=== PATIENT | male | born 1945 | race Caucasian/White ===

== ENCOUNTER 2019-03-18 18:48 | Inpatient (IN) | payer SELFPAY ==
[~2019-03-18] VITALS: Ht 180.3 cm; Wt 66.0 kg
[2019-03-18 19:53] LABS: BASOPHILS 0.3 % (0-2); EOSINOPHILS 0.3 % (0-7); HEMATOCRIT 41.3 % (42.0-54.0); HEMOGLOBIN 14.3 g/dL (13.5-17.5); IMMATURE GRANULOCYTES 0.4 % (0-5); LYMPHOCYTES 20.2 % (15-50); MCHC 34.6 g/dL (31.0-37.0); MCV 95.4 fL (80.0-100.0); MEAN PLATELET VOLUME 9.2 fL (7.4-10.4); MONOCYTES 9.5 % (2-11); NEUTROPHILS 69.3 % (40-80); PLATELET COUNT 215 10x3/uL (130-400); RBC 4.33 10x6/uL (4.20-6.10); RDW 12.7 % (11.5-14.5); WBC 9.1 10x3/uL (4.8-10.8)
[2019-03-18 20:03] LABS: INR 1.17 (0.85-1.17); PROTIME 14.4 SECONDS (11.6-15.0)
[2019-03-18 20:08] LABS: ALBUMIN 4.3 g/dL (3.4-5.0); ANION GAP 15.2 mmol/L (8-16); BILIRUBIN - TOTAL 2.16 mg/dL (0.2-1.3); CALCIUM 9.4 mg/dL (8.5-10.1); CARBON DIOXIDE 23.7 mmol/L (21.0-32.0); CREATININE - SERUM 1.2 mg/dL (0.6-1.3); POTASSIUM - SERUM 3.9 mmol/L (3.5-5.1); PROTEIN - SERUM 8.1 g/dL (6.4-8.2)
[2019-03-18 20:34] LABS: CHOL - HDL RATIO 2.2 ratio (2.3-4.9); LDL-HDL RATIO 1.1 ratio (1.5-3.5); MAGNESIUM - SERUM 2.1 mg/dL (1.8-2.4); THYROID STIMULATING HORMONE 1.02 uIU/mL (0.36-3.74)
[2019-03-18 20:34] LABS: APPEARANCE CLEAR (CLEAR); BILIRUBIN NEGATIVE (NEGATIVE); COLOR YELLOW (YELLOW); GLUCOSE NEGATIVE (NEGATIVE); KETONE MODERATE mg/dL (NEGATIVE); NITRITE NEGATIVE (NEGATIVE); PROTEIN NEGATIVE (NEGATIVE); UROBILINOGEN NORMAL (NORMAL)
[2019-03-18 20:41] LABS: UDS - AMPHET NEGATIVE QUAL (NEGATIVE); UDS - BARB NEGATIVE QUAL (NEGATIVE); UDS - BENZO NEGATIVE QUAL (NEGATIVE); UDS - COCAINE NEGATIVE QUAL (NEGATIVE); UDS - OPIATE NEGATIVE QUAL (NEGATIVE); UDS - PCP NEGATIVE QUAL (NEGATIVE); UDS - THC POSITIVE QUAL (NEGATIVE)
--- NOTE | 2019-03-18 21:55 | NUR ---
PT WAS WILLING TO SEEK TREATMENT THROUGH [facility].
--- NOTE | 2019-03-18 22:00 | NUR ---
[facility] AT BEDSIDE AND NOW PT IS NOT WILLING TO STAY UNDER THE CONDITIONS THAT MEDICARE COMPLIANCE AUDITOR MENTIONED.
[2019-03-18 22:30] VITALS: BP 139/83
--- NOTE | 2019-03-18 22:30 | NUR ---
WHEN DISCHARGING PT, PT DECIDED TX WOULD BENEFIT SO DECIDED TO STAY AND SEEK TX.
--- NOTE | 2019-03-18 22:48 | NUR ---
DR GOMEZ NOTIFIED AND REVIEWED PT's BEHAVIOR AND ASSESSMENT RESULTS. PT IS A LOW RISK PER DR GOMEZ, DR LEE STATES T GIVE RESOURCES TO PT AT TIME OF DISCHARGE. NO FURTHER ORDERS AT THIS TIME, RESOURCES REVIEWED WITH PT AND HE VERBALIZED UNDERSTANDING. DR GOMEZ ACCEPTE HIM TO HALFWAY FOR HIS HALLUCINATIONS, PT INITALY DECLINED BUT HIS FRIEND TALKED HIM INTO GETTING HELP.
--- NOTE | 2019-03-18 23:20 | NUR ---
REPORT CALLED TO JAZMINE IN [facility] UNIT. ROOM ASSIGNMENT 1127. EMERGENCY CONTACT INFORMATION CRISTI CHUNG [phone].
[2019-03-19 00:27] VITALS: BP 156/75; Ht 180.3 cm; Wt 66.0 kg
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
[2019-03-19 07:10] LABS: CHOL - HDL RATIO 2.3 ratio (2.3-4.9); THYROID STIMULATING HORMONE 1.19 uIU/mL (0.36-3.74)
--- NOTE | 2019-03-19 07:46 | NUR ---
B) The patient is pleasant, he is pacing the floor. He is oriented x3. He has not shown any signs of hallucinations at this time. He has requested a bandaid as he says he has a chafing area in between his toes. I) Provide prescribed meds. R) The patient is cooperative at this time. P) Continue POC.
[2019-03-19 08:30] VITALS: BP 132/70
--- NOTE | 2019-03-19 14:24 | NUR ---
DR. GOMEZ SPOKE TO THE PATIENT AND SHE ATTEMPTED TO ENCOURAGE THE PATIENT TO STAY OVER THE WEEKEND, BUT THE PATIENT IS ADAMANT TO LEAVE, THEREFORE DR. GOMEZ SAYS SHE IS DISCHARGING THE PATIENT AGAINST MEDICAL ADVISE. WILL BEGIN TO WORK ON THE DISCHARGE NOW.
--- NOTE | 2019-03-19 14:56 | NUR ---
THE PATIENT SIGNED ALL OF HIS AMA PAPERWORK AND I CALLED THE PATIENT'S FRIEND CRISTI TO COME PICK THE PATIENT UP. HE SAYS HE WILL BE HERE SHORTLY.
--- NOTE | 2019-03-19 15:19 | NUR ---
PATIENT FRIEND CAME TO INJECTION MACHINE OPERATOR PATIENT. FRIEND ATTEMPTED TO TELL HIM HE NEEDS HELP. PT CONFUSED THINKING HE HAS BEEN HERE 3 DAYS AND DOES NOT HAVE THE MONEY TO BUY GROCERY. FRIEND ATTEMPTED TO EXPLAIN TO PT HE HAD MONEY AND HE NEEDED HELP. PT DENIED HE HAD ANY PROBLEMS. PT LEFT AGAINST MEDICAL ADVICE.
--- NOTE | 2019-03-19 15:25 | NUR ---
DUE TO ALL THE COMMUNICATION FROM PATIENT FRIEND APS CALLED FOR A WELLNESS CHECK. WILL FAX INFORMATION TO [facility].
[2019-03-20 08:10] LABS: RAPID PLASMA REAGIN Non Reactive (Non Reactive)
--- NOTE | 2019-03-22 12:28 | PSY ---
PATIENT NAME:ROLANDA CALLOWAY MEDICAL RECORD: [id number] : 41 LOCATION:[facility] ADMISSION DATE: 03/18/19 ACCOUNT: [id number] PSYCHIATRIC EVALUATION DATE OF EVALUATION: 03/19/19 HISTORY OF PRESENT ILLNESS: Mr. Calloway is a 73-year-old male who was brought to the Emergency Room last night by a neighbor who is also a deputy sheriff civil division. The neighbor stated that the patient has been living in his apartment acting confused and agitated and the patient had reported to him visual hallucinations. The patient goes into some detail stating they look like ghost of people, like female Ninja warriors in pined[place], but when he averted eyes and then went to focus on them again, they were gone. He came to the Emergency Room. Apparently, there he initially decided to come, then decide to leave, then decided to stay and after a fairly extensive discussion of his background and history, he states that he no longer wishes to stay. He denies suicidal or homicidal ideation, auditory or visual hallucinations. He states his last visual hallucination was several days ago, although ER records state that he was reporting them the day of ER visit. He denies delusions. I tried to discuss with him the rationale and psychiatric treatment mainly seeing if they reappear, what factors make them reappear. If they do not, they might have been drug induced, but the only way to tell that is through further hospitalization. The patient again refuses and demands to be discharged. PAST PSYCHIATRIC HISTORY: He denies any prior psychiatric history. No inpatient admissions, no suicide attempts. PAST MEDICAL HISTORY: ER reports nothing. The patient states he initially stated that he had nothing and then reported he had been taking his finasteride for his prostate regularly, but then again would say he had no real medical problems other than the [facility] simply wanted him to take something. ALLERGIES: No known drug allergies. SOCIAL HISTORY: He was born in [place], grew up in [place], moved to the at 17. He is a resident of [place]. 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 Denies any legal problems. States his neighbor is a deputy sheriff civil division. DRUG AND ALCOHOL: He states he has been using concentrated forms of marijuana recently. He denies any alcohol use or any other illicit substance abuse. His urine drug screen was positive for THC only. FAMILY HISTORY: He denied. MENTAL STATUS EXAM: He is a 73-year-old thin male, dressed and groomed casually, slightly disheveled. His thought process is rational, frequently irrelevant. He is overly inclusive of detail of most questions and circumstantial. He denies suicidal or homicidal ideation. No auditory or visual hallucinations currently. No delusions. Cognitive exam: He knew it was Friday, late February 2019. He knew he was in the [place]. He knew the president was Marcelo Shelton. He had some insight into why he came into the hospital. ASSESSMENT: Psychosis, not otherwise specified, rule out psychosis secondary to THC use versus a rule out of visual hallucinations associated with burgeoning dementia, particularly parkinsonian dementia. PLAN: At this point, the patient denies all entrance symptomatology. I cannot diagnostically evaluate his visual hallucinations in this brief visit, adequately considering especially the confusion that was noted as well. However, he is not an immediate harm to himself. I have discussed with the patient the options and he wants to discharge against medical advice. We will do so with recommendation that he not smoke anymore marijuana and he follow up with his general practitioner as soon as possible. Case discussed with nursing, chart reviewed, and the patient interviewed. TRANSINT:[id number] Voice Confirmation ID: [id number] DOCUMENT ID: [id number] FAISAL GOMEZ MD at 1228 CC: [id number] DICTATION DATE: 03/19/19 1248 MAINTENANCE AND ENGINEERING MANAGER: 03/19/19 1314 DIS IN 03/19/19 [facility] [address] [place] [address]
== END 2019-03-19 15:18 | disposition left against medical advice (07) | DRG 125 ==
LOC: D.ER 18:48 → D.PSYCH 23:01
PROVIDERS: Family Medicine; ADMIT Psychiatry & Neurology Psychiatry; ATTEND Psychiatry & Neurology Psychiatry
DX: R44.1 Visual hallucinations (principal); R41.0 Disorientation, unspecified; F12.90 Cannabis use, unspecified, uncomplicated; F17.210 Nicotine dependence, cigarettes, uncomplicated

== ENCOUNTER 2019-03-22 08:08 | Emergency (ER) | payer OTHER ==
[~2019-03-22] VITALS: Ht 180.3 cm; Wt 74.1 kg
[2019-03-22 08:13] VITALS: BP 164/85; Ht 180.3 cm; Wt 74.1 kg
[2019-03-22 08:45] LABS: UDS - AMPHET NEGATIVE QUAL (NEGATIVE); UDS - BARB NEGATIVE QUAL (NEGATIVE); UDS - BENZO NEGATIVE QUAL (NEGATIVE); UDS - COCAINE NEGATIVE QUAL (NEGATIVE); UDS - OPIATE NEGATIVE QUAL (NEGATIVE); UDS - PCP NEGATIVE QUAL (NEGATIVE); UDS - THC POSITIVE QUAL (NEGATIVE)
[2019-03-22 08:57] LABS: BASOPHILS 0.4 % (0-2); EOSINOPHILS 0.4 % (0-7); HEMATOCRIT 41.9 % (42.0-54.0); HEMOGLOBIN 14.7 g/dL (13.5-17.5); IMMATURE GRANULOCYTES 0.3 % (0-5); LYMPHOCYTES 20.1 % (15-50); MCH 33.8 pg (26.0-34.0); MCHC 35.1 g/dL (31.0-37.0); MCV 96.3 fL (80.0-100.0); MEAN PLATELET VOLUME 9.5 fL (7.4-10.4); MONOCYTES 9.5 % (2-11); NEUTROPHILS 69.3 % (40-80); PLATELET COUNT 211 10x3/uL (130-400); RBC 4.35 10x6/uL (4.20-6.10); RDW 12.8 % (11.5-14.5); WBC 7.4 10x3/uL (4.8-10.8)
[2019-03-22 09:03] LABS: ALKALINE PHOSPHATASE 81 U/L (46-116); ALT (SGPT) 23 U/L (10-68); BILIRUBIN - TOTAL 2.16 mg/dL (0.2-1.3); CALC OSMOLALITY 288 mosm/kg (275-300); CALCIUM 9.2 mg/dL (8.5-10.1); CARBON DIOXIDE 27.5 mmol/L (21.0-32.0); CHLORIDE - SERUM 106 mmol/L (98-107); CREATININE - SERUM 1.2 mg/dL (0.6-1.3); GLUCOSE 104 mg/dL (74-106); POTASSIUM - SERUM 3.4 mmol/L (3.5-5.1); SODIUM 143 mmol/L (136-145); UREA NITROGEN 25 mg/dL (7-18); eGFR NON AFRICAN AMERICAN 63 mL/min (90-120)
[2019-03-22 09:15] LABS: CKMB 3.5 U/L (0.0-3.6); CREATINE KINASE 396 UL (21-232); MAGNESIUM - SERUM 2.3 mg/dL (1.8-2.4); THYROID STIMULATING HORMONE 1.57 uIU/mL (0.36-3.74); TROPONIN-I < 0.017 ng/mL (0.000-0.060)
[2019-03-22 09:17] LABS: APPEARANCE CLEAR (CLEAR); BACTERIA FEW /hpf (NEGATIVE); BILIRUBIN NEGATIVE (NEGATIVE); COLOR YELLOW (YELLOW); EPITHELIAL CELLS 0-5 /hpf (0-5); GLUCOSE NEGATIVE (NEGATIVE); KETONE SMALL mg/dL (NEGATIVE); MUCUS >1+ /lpf (NONE SEEN); NITRITE NEGATIVE (NEGATIVE); PROTEIN TRACE mg/dL (NEGATIVE); RED CELLS - URINE RARE /hpf (0-5); SPECIFIC GRAVITY 1.025 (1.005-1.020); SPERMATOZOA PRESENT /hpf (NONE SEEN); WHITE CELLS - URINE 0-5 /hpf (NEGATIVE)
== END 2019-03-22 15:20 | disposition home or self-care (01) ==
LOC: D.ER 08:08
PROVIDERS: Family Medicine
DX: R42 Dizziness and giddiness (principal); F03.90 Unspecified dementia, unspecified severity, without behavioral disturbance, psychotic disturbance, mood disturbance, and anxiety; E86.9 Volume depletion, unspecified

== ENCOUNTER 2019-04-15 09:01 | Inpatient (IN) | payer OTHER ==
[2019-04-15 10:43] LABS: BASOPHILS 0.3 % (0-2); HEMATOCRIT 43.9 % (42.0-54.0); HEMOGLOBIN 14.8 g/dL (13.5-17.5); IMMATURE GRANULOCYTES 0.3 % (0-5); LYMPHOCYTES 33.5 % (15-50); MCH 33.2 pg (26.0-34.0); MCHC 33.7 g/dL (31.0-37.0); MCV 98.4 fL (80.0-100.0); MONOCYTES 9.4 % (2-11); NEUTROPHILS 55.5 % (40-80); PLATELET COUNT 193 10x3/uL (130-400); RBC 4.46 10x6/uL (4.20-6.10); RDW 13.2 % (11.5-14.5); WBC 5.7 10x3/uL (4.8-10.8)
[2019-04-15 10:51] LABS: UDS - AMPHET NEGATIVE QUAL (NEGATIVE); UDS - BARB NEGATIVE QUAL (NEGATIVE); UDS - BENZO NEGATIVE QUAL (NEGATIVE); UDS - COCAINE NEGATIVE QUAL (NEGATIVE); UDS - OPIATE NEGATIVE QUAL (NEGATIVE); UDS - PCP NEGATIVE QUAL (NEGATIVE); UDS - THC POSITIVE QUAL (NEGATIVE)
[2019-04-15 10:54] LABS: APTT 29.4 SECONDS (22.8-39.4); INR 1.78 (0.85-1.17); PROTIME 20.1 SECONDS (11.6-15.0)
[2019-04-15 10:58] LABS: ANION GAP 9.4 mmol/L (8-16); CALCIUM 8.9 mg/dL (8.5-10.1); CARBON DIOXIDE 31.5 mmol/L (21.0-32.0); CREATININE - SERUM 1.1 mg/dL (0.6-1.3); POTASSIUM - SERUM 3.9 mmol/L (3.5-5.1)
[2019-04-15 11:20] LABS: APPEARANCE HAZY (CLEAR); BILIRUBIN NEGATIVE (NEGATIVE); COLOR YELLOW (YELLOW); GLUCOSE NEGATIVE (NEGATIVE); KETONE NEGATIVE (NEGATIVE); NITRITE NEGATIVE (NEGATIVE); PROTEIN NEGATIVE (NEGATIVE); SPECIFIC GRAVITY 1.015 (1.005-1.020)
[2019-04-15 11:21] LABS: BACTERIA FEW /hpf (NEGATIVE); EPITHELIAL CELLS OCC /hpf (0-5); MUCUS <1+ /lpf (NONE SEEN); RED CELLS - URINE NONE SEEN /hpf (0-5); WHITE CELLS - URINE RARE /hpf (NEGATIVE)
[2019-04-15 11:27] LABS: BILIRUBIN - TOTAL 1.4 mg/dL (0.2-1.3); LDL-HDL RATIO 0.8 ratio (1.5-3.5); MAGNESIUM - SERUM 2.4 mg/dL (1.8-2.4); PROTEIN - SERUM 7.9 g/dL (6.4-8.2); THYROID STIMULATING HORMONE 1.12 uIU/mL (0.36-3.74)
--- NOTE | 2019-04-15 12:24 | NUR ---
MEAL TRAY TO PT. PT EATING.
--- NOTE | 2019-04-15 13:15 | NUR ---
PT ACCEPTED TO CUSTODIAL AT THIS TIME.
--- NOTE | 2019-04-15 13:21 | NUR ---
PT STATES HE NEEDS HELP DECIDING WHETHER TO USE MEDICARE OR HIS VA BENEFITS. REQUESTS HELP DECIDING. REGISTRATION STAFF CONTACTED ET SENT TO ROOM.
--- NOTE | 2019-04-15 14:00 | NUR ---
PATIENT ARRIVED TO UNIT IN WHEELCHAIR FROM ED. PT AMBULATES, ABLE TO MAKE NEEDS KNOW. PT IS PLESANT AND VOLUNTARY ADMIT. PT CODE STATUS IS DNR. PT IS HERE FOR HALLUNICATIONS. PT SHOWERED WHEN CAME TO THE UNIT. NKDA. V/S: B/P: 120/52, P: 89, R:18, T:98.5, 02 SAT 99%. WEIGHT: 157.2 LBS PER WHEELCHAIR SCALE.
--- NOTE | 2019-04-15 14:15 | NUR ---
Obtained urine for UA and culture. Will send to lab.
[2019-04-15 14:22] VITALS: BP 120/52; BMI 21.9
[2019-04-15 14:37] LABS: APPEARANCE CLEAR (CLEAR); BILIRUBIN NEGATIVE (NEGATIVE); COLOR YELLOW (YELLOW); GLUCOSE NEGATIVE (NEGATIVE); KETONE NEGATIVE (NEGATIVE); NITRITE NEGATIVE (NEGATIVE); PROTEIN TRACE mg/dL (NEGATIVE)
[2019-04-15 20:20] VITALS: BP 112/63
--- NOTE | 2019-04-15 22:32 | NUR ---
REC'D IN DAYROOM. ASKING FOR SOMETHING TO DRINK. WATER GIVEN TO PATIENT. PATIENT IS ANGRY AND UNCOOPERATIVE WHEN TRYING TO TALK WITH HIM. HE YELLS AT YOU TO GET OUT. DID NOT WANT THE HALLOWEEN DECORATION ON HIS DOOR. WOULD NOT ANSWER NURSE'S QUESTIONS RELATING I'M TRYING TO SLEEP NOW GET OUT OF HERE. PT GOT UP AND GRABBED HIS JACKET REATING HE WAS GOING SOMEWHERE WHERE HE COULD REST. INFORMED PATIENT HE IS IN HIS ROOM. HE THEN RELATED GET OF OUT AND LEAVE ME ALONE. OBSERVE FOR HALLUNCINATIONS AND REDIRECT USING REALITY BASED INFORMATION. REDIRECT FOR INAPPROPRIATE BEHAVIORS TOWARD PEERS STAFF. NO HALLUCINATIONS NOTED OR REPORTED. POOR REORIENTATION. YELLS AND IS NOT RECEPTIVE TO FEEDBACK. CONTINUE POC AND PROVIDE NYASIA ENVIRONMENT.
--- NOTE | 2019-04-16 02:41 | NUR ---
PT PRESENTED TO NURSE'S STATION DEMANDING HIS BELONGINGS. EXPLAINED TO PT HIS PERSONAL ITEMS WERE LOCKED IN THE SAFE. HE PROCEEDED TO TELL NURSE TO GET THEM. NURSE WENT TO CHECK ON A BED ALARM AND TOLD PATIENT WE WOULD CHECK THE CHART WHEN I GOT BACK. PATIENT THREW A BOX OF GLOVES OVER THE NURSE'S STATION DESK. PATIENT CAME TO THE ROOM WHERE THE NURSE WAS AND ASKED WHERE THE HOME BASED ASSISTANT WAS THAT BROUGHT HIM HERE. EXPLAINED THE DIP STAND LOADER WAS NOT CURRENTLY WORKING BECAUSE HE CAME IN DURING THE DAY TIME. PATIENT THEN DOUBLED HIS FIST AND PULLED BACK IF WAS GOING TO HIT THE NURSE. PATIENT THAT THE NURSE WAS HELPING STARTED APOLOGIZNG. REASSURED THAT PATIENT THAT HE HAD NOT DONE ANYTHING WRONG. THE OTHER PATIENT RETURNED BACK TO THE ROOM WHERE THE NURSE WAS AND GRABBED THE BLANKET OUT OF HER HAND RELATING HE WANTED HIS STUFF AND ALL THE NURSE WAS DOING WAS MAKING A BED. PATIENT GOT BACK IN THE BED AND WHEN THE NURSE GOT BACK TO THE DESK THE ANGRY PATIENT WAS AT THE NURSES STATION AND WOULD NOT LET HER SHUT THE DOOR. CALLED ER FOR SECURITY TO COME TO THE UNIT AND WHEN HE ARRRIVED PATIENT TOLD HIM HE WANTED HIS BELONGINGS AND PROCEEDED TO CALL THE NURSE A BITCH AND RELATED WE WERE STEALING FROM HIM. PATIENT FINALLY RETURNED TO HIS ROOM WITHOUT INCIDENCE.
--- NOTE | 2019-04-16 07:17 | NUR ---
B) The patient is getting paranoid. He is accusing staff of keeping his passports and he is listening to all of the conversations about others and staff have politely asked him to sit away from the desk. He is disgruntled and irritable this am. He does not remember being here last month. I) Encourage the patient to participate in groups and learn coping skills. R) The patient is at the nurses station and he is making comments to some of the nurses. Will allow the patient to self calm. P) Continue POC.
[2019-04-16 08:23] LABS: CHOL - HDL RATIO 2.1 ratio (2.3-4.9)
[2019-04-16 09:39] VITALS: BP 102/52; BP 95/50
[2019-04-16 10:00] VITALS: Wt 72.4 kg
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
[2019-04-16 20:00] VITALS: BP 125/61
--- NOTE | 2019-04-17 00:49 | NUR ---
B.) PT IS ALERT AND ORIENTED PERSON, PLACE AND TIME. HE IS DEMANDING, INTRUSIVE WITH OTHERS, AND CONFRONTATIONAL WITH STAFF. HE IS ABLE TO MAKE HIS NEEDS KNOWN. HE CAN AMBULATE WITHOUT ASSISTANCE. I.) REDIRECT OFTEN. PROVIDED PM MEDICATION. R.) DIFFICULT TO REDIRECT. REMAINS INTRUSIVE WITH OTHERS. COMPLIANT WITH MEDICATION. P.) CONTINUE PLAN OF CARE
--- NOTE | 2019-04-17 08:02 | PN ---
PATIENT:ROLANDA CALLOWAY MEDICAL RECORD: [id number] LOCATION:[facility] ADMISSION DATE: 04/15/19 PROGRESS NOTE DATE OF SERVICE: 04/16/2019 SUBJECTIVE: The patient's case was discussed with staff. He has no new complaint. OBJECTIVE: The patient is clearly impaired cognitively. He denies that he would seek to harm himself or others. ASSESSMENT: Dementia. PLAN: I am going to start the patient on Aricept at a dose of 5 mg at bedtime. He will be monitored for clinical changes associated with its use. His long-term prognosis is guarded. TRANSINT:[id number] Voice Confirmation ID: [id number] DOCUMENT ID: [id number] KAILA CONLEY MD at 0802 CC: [id number] DICTATION DATE: 04/16/19 152 TUBE CLEANING OPERATOR: 04/16/19 2131 ADM IN [address] [place] [id number]
[2019-04-17 09:16] VITALS: BP 119/60
--- NOTE | 2019-04-17 13:00 | NUR ---
The patient has been taking food from other patients trays if they do not eat the item. Staff also witnessed him taking food off of the food cart after the patient's had eaten off of teir trays. Did have to explain that he did not need to do that, we will order him double portions. He agreed. He is confused and will need redirection and a reminder.
--- NOTE | 2019-04-17 15:25 | NUR ---
The patient is intrusive and he has no spatial boundaries and he is unable to comprehend when a situation is going badly as he will interject his thoughts at the most inappropraite times. A patient had been having some issues breathing and he wanted to get up in the nurses face and ask questions about having a blanket. Even when staff explained to him that it will be just a moment. The patient continues to step out of his dorothy and into others. He went so far as to tell the staff that they should leave everyone's trays on the table in case they wanted to continue eating.
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
[2019-04-17 20:00] VITALS: BP 142/59
--- NOTE | 2019-04-17 20:02 | NUR ---
RECEIVED IN DAYROOM. SOCIALZING WITH STAFF AND PEERS. CALM AND COOPERATIVE WITH CARE AND ASSESSMENT. NO SIGNS OF HALLUCINATIONS. REDIRECT AND REORIENT NEEDED. CONTINUES TO SOCIALIZE WHILE WAITING ON PM MEDICATIONS. CONTINUE PLAN OF CARE.
[2019-04-18 08:00] VITALS: BP 115/73
--- NOTE | 2019-04-18 17:06 | NUR ---
PATIENT ALERT, RESTLESS, CONFUSED, CONT TO INQUIRE ABOUT HIS PERSONAL BELONGINGS. ASSURED PT THAT HIS BELONGINGS WERE IN THE HOSPITAL SAFE..PAT THEN ASKED IF THIS NURSE COULD TAKE A PICTURE OF THE BELONGINGS TO PROVE THAT THEY WERE OK..INFORMED PATIENT THAT WAS NOT POSSIBLE. THERE WERE NO MEDS TO ADMIN AT MORNING MED PASS. MEDS DUE AT 21:00. CONT PLAN OF CARE DIRECTED.
[2019-04-18 20:10] VITALS: BP 158/71
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
[2019-04-19 08:28] VITALS: BP 125/61
--- NOTE | 2019-04-19 13:07 | NUR ---
PT IS AWAKE AND ALERT TO PERSON, PLACE, AND TIME. PT IS CONFUSED ABOUT HIS SITUATION AT THIS TIME. CALM AND COOPERATIVE WITH ASSESSMENT. MED COMPLIANT. FALL PRECAUTIONS IN PLACE. WILL CPOC.
--- NOTE | 2019-04-19 14:41 | NUR ---
Nutrition Follow-up: Diet: Regular, double portions PO intake: 100% Last BM 04/16/19. Wt: 160# (04/18/19); Admit wt: 157# (04/15/19)-both wheelchair wts Significant meds: linzess. Labs and nursing skin assessment reviewed. Continue current nutrition regimen. RD Following.
--- NOTE | 2019-04-19 15:49 | PN ---
PATIENT:ROLANDA CALLOWAY MEDICAL RECORD: [id number] LOCATION:[facility] ADMISSION DATE: 04/15/19 PROGRESS NOTE DATE OF SERVICE: 04/17/2019 SUBJECTIVE: The patient's case was discussed with staff. He has no new complaint. OBJECTIVE: The patient is in good behavioral control with poor insight about his condition. He tolerates his medicines well. ASSESSMENT: Dementia. PLAN: The patient was actively hallucinating and showed sundowning behaviors last night. He has no recollection of this. I have started him on Aricept and it may be necessary to start him on an antipsychotic, but I am going to wait on that. I have discussed the situation with the medical social consultant and an apartment for him is going to be difficult because of his low income and I do not think he could adequately function in an apartment at this point. TRANSINT:[id number] Voice Confirmation ID: [id number] DOCUMENT ID: [id number] KAILA CONLEY MD at 1549 CC: [id number] DICTATION DATE: 04/17/19 0840 FINANCIAL PLANNING ASSISTANT: 04/17/[address] [facility] [address] [place] [address]
[2019-04-19 20:05] VITALS: BP 95/77
--- NOTE | 2019-04-19 21:22 | NUR ---
RECEIEVED IN DAYROOM. WALKING ABOUT SOCIALIZING WITH STAFF AND PEERS. CALM AND COOPERATIVE WITH CARE AND ASSESSMENT. CONFUSED. ENCOURAGE TO EXPRESS NEEDS. REDIRECT AND REORIENT NEEDED. IN BED ROOM SITTING ON BED AT THIS TIME. CONTINUE PLAN OF CARE.
--- NOTE | 2019-04-20 08:00 | NUR ---
PT IS CONFUSED AT TIMES. PT CAN BE VERY DEMANDING WITH STAFF. PT IS VERY PARANOID AND DELUSIONAL TODAY. PT CAN BE VERY DIFFICULT TO REDIRECT AT TIMES. MED COMPLIANT. CALM AND COOPERATIVE WITH ASSESSMENT. REDIRECT AND REORIENT NEEDED. WILL CPOC.
[2019-04-20 08:18] VITALS: BP 114/53
--- NOTE | 2019-04-20 15:28 | PN ---
PATIENT:ROLANDA CALLOWAY MEDICAL RECORD: [id number] LOCATION:[facility] ADMISSION DATE: 04/15/19 PROGRESS NOTE DATE OF SERVICE: 04/19/2019 SUBJECTIVE: The patient's case was discussed with staff. He has no new complaint. OBJECTIVE: The patient is in good behavioral control with limited insight about his condition. He denies that he would seek to harm himself or others. ASSESSMENT: Dementia. PLAN: Current medicines have been reviewed and will be maintained. Long-term prognosis is guarded. TRANSINT:[id number] Voice Confirmation ID: [id number] DOCUMENT ID: [id number] KAILA CONLEY MD at 1528 CC: [id number] DICTATION DATE: 04/19/19 1642 FLAP PRESSER: 04/19/19 2155 ADM IN [place] [id number] [place] [address]
--- NOTE | 2019-04-20 20:54 | NUR ---
RECEIVED IN DAYROOM. WALKING ABOUT SOCIALIZING WITH STAFF AND PEERS. INTRUSIVE AT TIMES. CALM AND COOPERATIVE WITH CARE AND ASSESSMENT. ENCOURAGE TO EXPRESS NEEDS. NO SIGNS OF HALLUCINATIONS. SITTING QUIETLY WITH STAFF AT THIS TIME. CONTINUE PLAN OF CARE
[2019-04-20 21:05] VITALS: BP 118/58
[2019-04-21 08:00] VITALS: BP 112/62
--- NOTE | 2019-04-21 14:20 | PN ---
PATIENT:ROLANDA CALLOWAY MEDICAL RECORD: [id number] LOCATION:[facility] ADMISSION DATE: 04/15/19 PROGRESS NOTE DATE OF SERVICE: 04/20/2019 SUBJECTIVE: The patient's case was discussed with staff. He has no new complaint. OBJECTIVE: The patient is delusional. He is making some very bizarre statements about things on the unit that deal with staff mistreating patients. Obviously any complaint or concern about that is taken seriously and investigated, but there is not much to investigate because all he says is that it involves a large nurse. He does not know which one and an elderly female patient. There are only 4 or 5 sitting in the day room and he cannot say which one and he says that the patients being locked in a steel plated at room and strapped to a table. He says this has been done in the past several days in a row and is being done during the day and not at night. Probing him about any particulars is not effective. He is highly distressed about this and says that he fears for his own life telling me this information. He is clearly paranoid and delusional and I think that he is going to require an antipsychotic medication. I am going to start him on Trilafon. I believe the psychotic symptoms are related to his underlying dementia. TRANSINT:[id number] Voice Confirmation ID: [id number] DOCUMENT ID: [id number] KAILA CONLEY MD at 1420 CC: [id number] DICTATION DATE: 04/20/19 1558 COMMUNITY HEALTH COORDINATOR: 04/20/19 2221 ADM IN [place] [id number] [place] [address]
--- NOTE | 2019-04-21 17:00 | NUR ---
PATIENT WAS ESCALATING IN DAYROOM AND GETTING AGITATED. TRIED TO TALK TO PATIENT, HE REFUSED THE MEDICATIONS OFFERED TO HIM. HE DID CALM DOWN.
--- NOTE | 2019-04-21 17:00 | NUR ---
AWAKE AND ALERT WITH CONFUSION NOTED. HE IS VERY DEMANDING AT TIMES. ALSO DIFFICULT TO REDIRECT. ADMINISTER PRESCRIBED MEDICATIONS. COMPLIANT WITH TAKING MEDS. WILL CONTINUE TO MONITOR.
[2019-04-21 20:00] VITALS: BP 143/68
--- NOTE | 2019-04-21 22:32 | NUR ---
B.) PT IS ALERT AND ORIENTED TO SELF AND SITUATION. HE IS ABLE TO AMBULATE WITHOUT ASSISTANCE. HE IS INTRUSIVE WITH STAFF. HE IS ABLE TO MAKE HIS NEEDS KNOWN. HE CONTINUES TO ASK FOR A PEN AND PAPER TO WRITE A LETTER TO HIS DAUGHTER BUT IS UNSURE OF WHERE TO SEND IT. I.) REDIRECT NEEDED. PROVIDED PM MEDICATIONS. R.) EASY TO REDIRECT. COMPLIANT WITH ALL MEDICATIONS. P.) CONTINUE PLAN OF CARE
[2019-04-22 08:36] VITALS: BP 161/80
--- NOTE | 2019-04-22 10:04 | NUR ---
RECEIVED PATIENT IN DINING ROOM FOR B'FAST, ALERT, RESTLESS, PACING ABOUT UNIT, INSISTS ON CONTROLLING THE TV, BUT OFTEN DOES NOT WATCH IT BUT PACES INSTEAD. SARCASTIC, DEMANDING. OTHERWISE COOPERATIVE WITH CARE. CONT POC DIRECTED.
--- NOTE | 2019-04-22 12:06 | NUR ---
NUTRITION F/U PT TOLERATING REG DIET WITH DOUBLE PORTIONS. GOOD INTAKE RECENT MEALS. WT REMAINS STABLE. +BM RECORDED ON 04/22/19. RD FOLLOWING
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
--- NOTE | 2019-04-22 15:25 | PN ---
PATIENT:ROLANDA CALLOWAY MEDICAL RECORD: [id number] LOCATION:[facility] ADMISSION DATE: 04/15/19 PROGRESS NOTE DATE OF SERVICE: 04/21/2019 SUBJECTIVE: The patient's case was discussed with staff. He has no new complaint. OBJECTIVE: The patient denies intent to harm himself or others. He is agitated. He is delusional and believes he is being poisoned. He stopped up the toilet with paper towels because he said the toilet paper was poisoned. He is telling other patients that they are being poisoned and upsetting them. 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 For example, it was group time when I left the day room and at group time, the television is not allowed to be on because patients are supposed to be participating in the activity. He is very angry about that and is giving the nurse's aide a battery of questions about policy and wanting to see things in writing, etc. ASSESSMENT: Dementia. PLAN: The patient is not capable of living independently. He is appropriate for a fdc; however, if there is a less restrictive environment that would meet his needs, I would prefer to at least try that. He still wanting to go to his own apartment, which #1, it turns out he cannot afford and #2, as we have gotten better handle on his level of functioning, he is just simply inappropriate to live independently. He could probably function in a semi-independent state if he had a close family member who would live with him and care for him, but he does not. TRANSINT:[id number] Voice Confirmation ID: [id number] DOCUMENT ID: [id number] KAILA CONLEY MD at 1525 CC: [id number] DICTATION DATE: 04/21/19 1546 EMERGENCY SPECIALIST: 04/21/19 5667 ADM IN [address] [id number] [place] [address]
--- NOTE | 2019-04-22 15:40 | NUR ---
NURSE ADMINISTERED ATIVAN 0.5 MG PO FOR ANXIETY PER DR. CONLEY ORDER. PT WAS TEAR FILLED AND UPSET ABOUT APS HAVING AN OPEN CASE ON HIM. WILL REASSESS IN ONE HOUR FOR EFFECTIVENESS.
[2019-04-22 20:00] VITALS: BP 120/65
--- NOTE | 2019-04-22 22:56 | NUR ---
REC'D SITTING IN THE DAYROOM. GETS UP AND PACES. ASKED NURSE IF SHE HAD EVER TESTIFIED IN A COURT HEARING. ORIENTED X3. PT. RELATES HE WAS DIAGNOSED WITH PTSD WITH 30% DISABILITY APPROXIMATLEY 35 YEARS AGO AND NOW HE IS BEING TOLD HE HAS THE BEGINNING OF DEMENTIA. PT CALLED DR CONLEY "THAT PRICK PSYCHIARTIST." VERY SUSPICIOUS AND GUARDED RELATING HE IS GOING TO BE PUT AWAY AND ALL HIS MONEY AND EVERYTHING HE HAS IS GOING TO BE TAKEN AWAY FROM HIM. INFORMED NURSE HE GETS $1400/MONTH SOCIAL SECURITY AND $500/MONTH FOR SERVING THIS [employer] AND NOW HE IS STUCK IN HERE AND HAS NO CAR OR ANYWAY TO GO TO THE COURT HOUSE HOUSE. ASKED NURSE IF HE WAS GOING TO HAVE A HEARING. ADMINISTER MEDS AND MONITOR COMPLIANCE. ENGAGE IN REALITY BASED CONVERSATIONS. MED COMPLIANT AFTER RELATING HE CAME IN ON NO MEDICINES AND NOW HE IS ON 4. RELATES HE DOES NOT THINIK IT IS GOOD TO BE ON TOO MANY MEDICATIONS. PT CAPABLE OF CARRYING ON CONVERSATION HOWEVER ALWAYS REVERTS BACK TO THE PARANOIA GUARDED SUSPICOUS BEHAVIOR. CONTINUE POC AND PROVIDE SAFE ENVIRONMENT.
[2019-04-23 08:05] VITALS: BP 131/64
--- NOTE | 2019-04-23 11:20 | NUR ---
PATIENT PACES FROM ROOM TO ROOM. PT IS RESTLESS, PARANOID, DEMANDING AND INTRUSIVE. PT IS ALERT AND ORIENTED 3X. PT HAS LIMITED INSIGHT TO SITUTION. PT THINKS THE OFFICE PEOPLE ARE OUT TO GET HIM AND ARE AGAINST HIM. PT ASKS IF HE CAN HAVE A COURT DATE AND WHY ARE WE LOCKING HIM UP? NURSE ATTEMPTS TO REDIRECT PT. PT HARD TO REDIRECT. PT IS AMBULATORY, CAN MAKE NEEDS KNOWN. PT AT TIMES HAS TO BE REDIRECT AWAY FROM OTHER PATIENTS WHEN HAVING PARANOID AND DELUSIONAL THOUGHTS. PT CAN BE ARGUMENTIVE WITH STAFF. WILL CONT PLAN OF CARE.
--- NOTE | 2019-04-23 14:32 | PN ---
PATIENT:ROLANDA CALLOWAY MEDICAL RECORD: [id number] LOCATION:[facility] ADMISSION DATE: 04/15/19 PROGRESS NOTE DATE OF SERVICE: 04/22/2019 SUBJECTIVE: The patient's case was discussed with staff. He has no new complaint. OBJECTIVE: The patient is argumentative, impaired, paranoid, and has virtually no insight. 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 He does not like the way our unit is run. He does not like the way it staff. He is delusional. He does not like how adult protective services operates and he wants everything changed because he does not like it. ASSESSMENT: Dementia. PLAN: At this time, [facility] has evaluated the patient for snf placement and I am not sure where the adult protective services agency is with their part of this. I do not know that they have called and informed us that if he attempts to leave or demands to leave that we are to call them and they will place him on an emergency shelter. Rolanda has been told this repeatedly and he thinks it is unfair and some kind of a violation of due process. He has been told he will have an community coordinator if it comes to a court hearing and he will have his opportunity to talk to the bank reconciliator. It is my diagnosis that he has dementia, it is my recommendation that he have 09-vnmm-i-day supervision and I think that the least restrictive environment appears to be a snf since he has no family, friends, and no estate that would pay for in-home caregivers to monitor him. TRANSINT:[id number] Voice Confirmation ID: [id number] DOCUMENT ID: [id number] KAILA CONLEY MD at 1432 CC: [id number] DICTATION DATE: 04/22/19 1550 TREATMENT MANAGER: 04/22/19 2324 ADM IN [facility] [address] [place] [address]
--- NOTE | 2019-04-23 17:30 | NUR ---
STAFF HAD TO REDIRECT PT FROM WATCHING [employer] DUE TO OUTBURSTS ABOUT THE PRESIDENT. PT COMPLIED.
[2019-04-23 21:35] VITALS: BP 131/68
--- NOTE | 2019-04-23 23:02 | NUR ---
REC'D PATIENT AT NURSE'S STATION ASKING FOR A CUP OF COFFEE. EXPLAINED TO PATIENT WE WERE GETTING REPORT AND WE WOULD GET HIM SOME COFFEE WHEN WE ARE FINISHED. INTRUSSIVE AND KEEPS TALKING AND ASKING FOR COFFEE. PREOCCUPIED WITH THE BELIEF THAT EVERYTHING IS GOING TO BE TAKEN AWAY FROM HIM AND HE WILL BE LOCKED UP SOMEWHERE. 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 PARANOID THAT EVERYONE IS AGAINST HIM. ADMINISTER MEDS AND MONITOR COMPLIANCE. REDIRECT FOR INTRUSSIVE BEHAVIOR. MED COMPLIANT. POOR REDIRECITON PT BECOMES AGITATED AND DEFENSIVE THEN STARTS MAKING ACCUSATIONS THAT HE IS BEING TAKEN FOR EVERYTHING HE HAS WORKED FOR. CONTINUE POC AND PROVIDE SAFE ENVIRONMENT.
--- NOTE | 2019-04-24 07:51 | NUR ---
B) The patient is awake and alert, he is already at the desk asking for coffee. He is calm and has not made any mention of paranoid feelings at this time. He ambulates independently. I) Provide prescribed meds. R) The patient is compliant with meds and unit milieu. P) Continue POC.
[2019-04-24 10:02] VITALS: BP 130/61
--- NOTE | 2019-04-24 12:27 | PN ---
PATIENT:HARPREET CALLOWAY MEDICAL RECORD: [id number] LOCATION:[facility] ADMISSION DATE: 04/15/19 PROGRESS NOTE DATE OF SERVICE: 04/23/2019 SUBJECTIVE: The patient's case was discussed with staff. He has no new complaint. OBJECTIVE: The patient is tolerating his medicines well. He continues to have some paranoid thoughts. ASSESSMENT: Dementia. PLAN: At this point, information from the office of long-term care as well as adult protective services is pending. Harpreet is unhappy about this as I can well understand, but at this point I simply do not have guidance from adult protective services or even approval to send him to a custodial. TRANSINT:[id number] Voice Confirmation ID: [id number] DOCUMENT ID: [id number] KAILA CONLEY MD at 1227 CC: [id number] DICTATION DATE: 04/23/19 1439 ELECTRICAL EQUIPMENT TESTER: 04/23/19 1540 ADM IN [id number] [place] [address]
--- NOTE | 2019-04-24 12:38 | NUR ---
Spoke to Camryn Hendrix APN about the patient having loose BM's, she said to d/c the Navdeep.
[2019-04-24 20:04] VITALS: BP 120/66
--- NOTE | 2019-04-25 00:24 | NUR ---
REC'D PATIENT STANDING AT THE NURSES STATION WANTING HIS MEDICATION. WHEN INSTRUCTED BY [facility] TO GET A GOWN FOR BEDTIME AND TAKE HIS CLOTHES OFF AND PUT DIRTY CLOTHES IN BAG TO BE WASHED PATIENT STARTED TO TAKE CLOTHES OFF AT THE NURESES STATION AND HAD TO BE INSTRUCTED TO WAIT UNTIL HE GOT TO HIS ROOM. PATIENT IS INTRUSSIVE AND DEMANDING FOR EXAMPLE IF HE WANTS TO GO TO BED HE DOES NOT FEEL HE HAS TO FOLLOW THE UNIT MILEU. INSTEAD THE UNIT SHOULD DO WHAT HE WANTS. ADMINISTER MEDS AND MONITOR COMPLIANCE. REDIRECT FOR INTRUSSIVE AND DEMANDING BEHAVIOR. MED COMPLIANT. RELUCTANTLY FOLLOWS INSTRUCTION FROM STAFF HOWEVER WILL CALL STAFF DEROGATORY NAMES FOR EXAMPLE REFERRED TO [facility] A "BITCH." CONTINUE POC AND PROVIDE SAFE ENVIRONMENT.
[2019-04-25 09:05] VITALS: BP 129/65
--- NOTE | 2019-04-25 11:29 | NUR ---
PT IS AWAKE AND ALERT. CALM AND COOPERATIVE WITH ASSESSMENT. MED COMPLIANT. NO BEHAVIORS NOTED AT THIS TIME. REDIRECT AND REORIENT NEEDED. PRESCRIBED MEDS PROVIDED. WILL CPOC.
--- NOTE | 2019-04-25 18:12 | NUR ---
PT CONTS TO BE INTRUSIVE, DEMANDING, INPATIENT AND RESTLESS. PT CAN MAKE NEEDS KNOWN. AMBULATES. PT HAS LIMITED INSIGHT TO SITUTION.
--- NOTE | 2019-04-25 21:40 | NUR ---
RECEIVED IN PATIENT ROOM. GETTING READY FOR BED. CALM AND COOPERTIVE WITH CARE AND ASSESSMENT. NO SIGNS OF HALLUCINATIONS. REDIRECT AND REORIENT NEEDED. RESTING IN BED WITH EYES CLOSED AT THIS TIME. CONTINUE PLAN OF CARE.
[2019-04-26 10:44] VITALS: BP 116/65
--- NOTE | 2019-04-26 14:01 | PN ---
PATIENT:ROLANDA CALLOWAY MEDICAL RECORD: [id number] LOCATION:[facility] ADMISSION DATE: 04/15/19 PROGRESS NOTE DATE OF SERVICE: 04/24/2019 SUBJECTIVE: The patient's case was discussed with staff. He has no new complaint. OBJECTIVE: The patient has had no psychotic symptoms today. He is tolerating his Trilafon reasonably well. I have started him on Aricept and we will increase the dose of that to 10 mg at bedtime. He is limited in his insight. He has not discussed his situation with adult protective services today. At this point, the office of long-term care has evaluated him and I do not have word from them as to whether or not they are going to approve him for the half-way. I do not know that adult protective services is going to take custody of him if he attempts to leave the hospital and that they are going to assist us with placement. It is still my assessment that he has dementia that is moderately advanced and that it is inappropriate for him to live independently. Unfortunately, he has no family or friends or resources that would allow him to stay in a less restrictive environment. TRANSINT:[id number] Voice Confirmation ID: [id number] DOCUMENT ID: [id number] KAILA CONLEY MD at 1401 CC: [id number] DICTATION DATE: 04/24/19 1234 CLIENT LIAISON: 04/24/19 1247 ADM IN [facility] [address] [place] [address]
--- NOTE | 2019-04-26 15:27 | NUR ---
PT IS AWAKE AND ALERT TO PERSON ONLY. PT IS CONFUSED. PT HAS NO INSIGHT INTO HIS SITUATION. CALM AND COOPERATIVE WITH ASSESSMENT. PRESCRIBED MEDS PROVIDED PER STAFF. REDIRECT AND REORIENT NEEDED. FALL PRECAUTIOSN IN PLACE. WILL CPOC.
[2019-04-26 21:37] VITALS: BP 130/70
--- NOTE | 2019-04-27 00:11 | NUR ---
RECEIVED IN HALLWAY STANDING OUTSIDE OF NURSES STATION SOCIALIZING WITH PEERS AND STAFF. NO SIGNS OF HALLUCINATIONS OR PARANOIA. REDIRECT AND REORIENT NEEDED. RESTING IN BED WITH EYES CLOSED AT THIS TIME. CONTINUE PLAN OF CARE
[2019-04-27 08:00] VITALS: BP 108/64
--- NOTE | 2019-04-27 12:52 | PN ---
PATIENT:HARPREET CALLOWAY MEDICAL RECORD: [id number] LOCATION:[facility] ADMISSION DATE: 04/15/19 PROGRESS NOTE DATE OF SERVICE: 04/26/2019 SUBJECTIVE: The patient's case was discussed with staff. He has no new complaint. OBJECTIVE: The patient has not had any psychotic symptoms today or yesterday. I think the medication has been effective. We have gotten word back from [employer] and their screener has approved him for long-term placement. He continues to have cognitive impairment, although he has improved some. ASSESSMENT: Dementia. PLAN: I have discussed the situation with the Adult Protective Services welder metal fab, who has a long detailed background on Harpreet that is consistent with significant impairment. Unfortunately, he has no resources and no family or friends who can assist him and for that reason, the least restrictive environment that will meet his needs from a safety standpoint is the long-term. I anticipate he can be transitioned there soon. At this point, the AP welder metal fab is going to present the situation to his superior. I await guidance from Adult Protective Services. I do not think there is much more I can do for him from a pharmacologic standpoint. TRANSINT:[id number] Voice Confirmation ID: [id number] DOCUMENT ID: [id number] KAILA CONLEY MD at 1252 CC: [id number] DICTATION DATE: 04/26/191740 PRINCIPAL HARDWARE ARCHITECT: 04/27/19 0139 ADM IN [facility] [address] [place] [address]
--- NOTE | 2019-04-27 15:24 | NUR ---
PATIENT CALM, ALERT, MILDLY CONFUSED, COOPERATIVE WITH STAFF, COMPLIANT WITH MEDS. PT WAS VISITED BY APS ENDOSCOPY TECHNICAN THIS MORNING. AFTER THE MEETING, PT WAS QUITE DEPRESSED AND STATED TO STAFF, "I MIGHT WELL BE ."
--- NOTE | 2019-04-27 17:06 | NUR ---
PATIENT BECAME QUITE AGITATED AND ARGUMENTATIVE AND TAKING UP THE CASE FOR PATIENT IN ROOM NUMBER 1130 AND HIS PENDING DISCHARGE. PATIENT ARGUING QUITE VEHEMENTLY IN FAVOR OF SOCIALISM AND SOCIALIZED MEDICINE. PATIENT INSTRUCTED TO TAKE HIS SEAT AND STOP ARGUING. AT WHICH TIME, HE COMPLIED.
[2019-04-27 20:00] VITALS: BP 123/71
--- NOTE | 2019-04-27 22:01 | NUR ---
RECEIVED IN DAYROOM. SOCIALIZING WITH OTHER PATIENTS. CALM AND COOPERATIVE WITH CARE AND ASSESSMENT. INTRUSIVE AT TIMES. DELUSIONALLY THINKING HE IS GOING TO SENIOR CARE FOR HAVING DEMENTIA. REDIRECT AND REORIENT NEEDED. RESTING IN BED WITH EYES OPEN AT THIS TIME. CONTINUE PLAN OF CARE.
[2019-04-28 08:42] VITALS: BP 134/77
--- NOTE | 2019-04-28 12:02 | PN ---
PATIENT:ROLANDA CALLOWAY MEDICAL RECORD: [id number] LOCATION:[facility] ADMISSION DATE: 04/15/19 PROGRESS NOTE DATE OF SERVICE: 04/27/2019 SUBJECTIVE: The patient's case was discussed with staff. He has no new complaint. OBJECTIVE: The patient is in good behavioral control with limited insight about his condition. He does tolerate his medicines well. ASSESSMENT: Dementia. PLAN: Adult protective services has taken custody of the patient and we are seeking custodial placement. Obviously, he is very unhappy about this, continues to argue that it is unjust and he very much wants to stay in court to explain his side of the situation to the neurosurgical physician assistant. TRANSINT:[id number] Voice Confirmation ID: [id number] DOCUMENT ID: [id number] KAILA CONLEY MD at 1202 CC: [id number] DICTATION DATE: 04/27/19 1314 AQUA AMMONIA OPERATOR: 04/27/19 2239 ADM IN [facility] [address] [place] [address]
[2019-04-28 20:00] VITALS: BP 128/63
--- NOTE | 2019-04-28 21:44 | NUR ---
PATIENT IS INTRUSIVE, HE CROSSES BOUNDARIES BY GETTING IN PEOPLE'S PERSONAL SPACE AND HE TENDS TO COME OUT OF HIS ROOM WITHOUT HIS PANTS AND DEPENDS ON. HE HAS TO BE REDIRECTED OFTEN. COMPLIANT WITH MEDS. NO ADVERSE REACTION NOTED. WILL FOLLOW POC
--- NOTE | 2019-04-29 08:14 | NUR ---
B) The patient is awake, he is not saying much this morning, he asked for iced water and then he went back to his room. He ambulates independently. I) Provide prescribed meds. R) The patient is compliant with meds. He does not have much to say this morning. P) Continue POC.
[2019-04-29 09:25] VITALS: BP 105/54
--- NOTE | 2019-04-29 12:18 | NUR ---
NUTRITION F/U PT TOLERATING REG DIET, PO INTAKE DECREASED RECENT MEALS. +BM 04/29/19. WT REMAINS STABLE. WILL PROVIDE CURRENT DIET, MONITOR PO INTAKE, WT. RD FOLLOWING
--- NOTE | 2019-04-29 13:51 | PN ---
PATIENT:ROLANDA CALLOWAY MEDICAL RECORD: [id number] LOCATION:[facility] ADMISSION DATE: 04/15/19 PROGRESS NOTE DATE OF SERVICE: 04/28/2019 SUBJECTIVE: The patient's case was discussed with staff. He has no new complaint. OBJECTIVE: The patient is disorganized with fairly limited insight about his situation. Eye contact is fair. Concentration is fair. ASSESSMENT: Dementia. PLAN: The patient has made some paranoid delusional statements to staff, but he does not do so with me. Apparently, he was very upset yesterday because adult protective services has decided to take custody of him. 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 If proper procedures are not being followed, I am not aware of it, this is the identical way I have operated here for almost 25 years and interacted with adult protective services without any difficulty. I think that he becomes somewhat paranoid when he is under stress and he certainly is under stress right now. I am told he has been talking about a conspiracy to take his liberty from him, although when asked about this, he cannot explain why so many different individuals and agencies would be interested in denying him his liberty. I am going to maintain him on the same medicines. I would like to avoid increasing his dose of antipsychotic medication for fear of precipitating side effects, but if he continues to have such disorganized thinking, I may be forced to do so. I do think he could reasonably be transitioned to a secure facility soon. TRANSINT:[id number] Voice Confirmation ID: [id number] DOCUMENT ID: [id number] KAILA CONLEY MD at 1351 CC: [id number] DICTATION DATE: 04/28/19 1240 DOCUMENTATION SPECIALIST: 04/28/19 1259 ADM IN [facility] [address] [place] [address]
--- NOTE | 2019-04-29 13:59 | NUR ---
The patient wet on his scrub pants and he requests another pair. He is standing in his brief and he refuses to sit down away from the other patients. He has made paranoid statements saying "They're going to jump me." Tried to reassure him that he is not going to get jumped.
--- NOTE | 2019-04-29 19:26 | NUR ---
PATIENT RECEIVED IN DAYROOM, HE WAS SLEEPING. RECEIVED IN REPORT THAT THERE HAS BEEN NO CHANGE IN HIS BEHAVIOR. HE IS ORIENTED TO SELF ONLY. HE IS NORMALLY ARGUMENTATIVE AND TENDS TO COME OUT OF HIS ROOM WITHOUT BEING FULLY CLOTHED. RECEIVED IN REPORT THAT HE IS REFUSING TO EAT BECAUSE HE CAN'T WATCH [employer]. WILL FOLLOW POC
[2019-04-29 22:12] VITALS: BP 160/75
--- NOTE | 2019-04-30 07:50 | NUR ---
B) The patient is awake and he is alert, he has poor short term memory. He comes to the nurses station and requests "Shaving equipment, please." Staff explains to him that it will be a little bit and he snidely remarks. "Oh, I know, hurry up and wait." I) Provide prescribed meds. R) The patient is compliant with meds. He is unhappy with how things are run here and he wants to argue with staff. One other patient told him "You always complain, you will never be happy." He did not have a response for that comment. P) Continue POC.
--- NOTE | 2019-04-30 10:10 | NUR ---
The patient is making negative comments and he is getting some of the other patients to join in the negativity. The patient makes negative remarks frequently.
[2019-04-30 10:52] VITALS: BP 125/51
--- NOTE | 2019-04-30 14:05 | PN ---
PATIENT:ROLANDA CALLOWAY MEDICAL RECORD: [id number] LOCATION:[facility] ADMISSION DATE: 04/15/19 PROGRESS NOTE DATE OF SERVICE: 04/29/2019 SUBJECTIVE: The patient's case was discussed with staff. He has no new complaint. OBJECTIVE: The patient is in good behavioral control with very limited insight about his situation. He continues to feel that the patients are being abused and mistreated and he wants me to let him call the environmental attorney about this. I have referred him to the unit aide and he indicates that she and I are involved in a conspiracy to keep this quiet. ASSESSMENT: Dementia. PLAN: The patient has been assessed by adult protective services and the office of long-term care as well as a local fci. The adult protective services agency has decided that he is too impaired to be allowed to live independently and unfortunately because of his circumstances the least restrictive environment is a fci. The area on aging and [place] [facility] have evaluated him face to face and given approval for fci placement. The fci has evaluated him and approved him as well and he is scheduled to be discharged on Friday if he has no behavior issues between now and then that would necessitate extending his stay. TRANSINT:[id number] Voice Confirmation ID: [id number] DOCUMENT ID: [id number] KAILA CONLEY MD at 1405 CC: [id number] DICTATION DATE: 04/29/19 1607 WEB PUBLISHER: 04/30/19 0012 ADM IN [facility] [address] [place] [address]
--- NOTE | 2019-04-30 14:15 | NUR ---
The patient requests to call the [facility] to report a theft of his belongings. He says he wants Juan from [facility] to come up here and find his belongings. Explained to him that we are not able to call the [facility]'s office. He can do that when he discharges, but tried to explain to him that his belongings are taken care of. He wants to argue and I explain that I am not arguing and he says "I kmow you don't because you will lose." Asked him to step away and he now wants to contact legal services.
--- NOTE | 2019-04-30 15:47 | NUR ---
The patient has been served his guardian papers from [facility], the patient is provided a copy and a copy is put in the patients chart.
--- NOTE | 2019-04-30 15:49 | NUR ---
The patient is pacing now making comments "I need 72 hours to get evidence to assist me, but of course I won't have that and I suppose I can appear without an commercial attorney, I guess I will do that."
--- NOTE | 2019-04-30 17:16 | NUR ---
The patient continues to read and reread his documents that he received and he is making paranoid statements about having to be hospitalized and the physician taking his organs and giving them to someone that needs them. No amount of reasoning satisfies him.
[2019-04-30 20:30] VITALS: BP 99/64
--- NOTE | 2019-04-30 23:11 | NUR ---
B.) PT IS ALERT AND ORIENTED TO SELF AND SITUATION. HE IS ABLE TO MAKE HIS NEEDS KNOWN. HE IS UPSET WITH THE FACT HE IS UNDER REVIEW WITH [facility]. HE IS PARANOID THAT THE STAFF HAS ENTERED HIS ROOM AND TAKEN HIS THINGS. HE STATES "YOU ALL DO WHATEVER YOU WANT ANYWAY, SO IT IS DO WHAT IM TOLD OR ELSE." HE HAS A PEN ON HIS PERSON, THAT HE REFUSES TO GIVE TO STAFF. I.) REDIRECT OFTEN. PROVIDED PM MEDICATIONS. WHEN ASKED TO GIVE THE PEN TO STAFF PER POLICY HE IS UPSET BUT EVENTUALLY PRODUCES THE PEN. R.) DIFFICULT TO REDIRECT. COMPLIANT WITH ALL MEDICATIONS. P.) CONTINUE PLAN OF CARE
[2019-05-01 08:00] VITALS: BP 110/57
--- NOTE | 2019-05-01 10:50 | NUR ---
B) The patient is quite focused on his court date Friday. He asked to use a highlighter and he is highlighting every line. He has poor insight into his situation. I) Provide prescribed meds. R) The patient does speak about hallucinating about the Ninja and bed bugs. P) Continue POC.
--- NOTE | 2019-05-01 12:13 | PN ---
PATIENT:ROLANDA CALLOWAY MEDICAL RECORD: [id number] LOCATION:[facility] ADMISSION DATE: 04/15/19 PROGRESS NOTE DATE OF SERVICE: 04/30/2019 SUBJECTIVE: The patient's case was discussed with staff. He has no new complaint. OBJECTIVE: The patient is in good behavioral control with limited insight about his condition. He tolerates his medicines well. ASSESSMENT: Dementia. PLAN: Brief supportive and educational interventions were made. Long-term prognosis is guarded. TRANSINT:[id number] Voice Confirmation ID: [id number] DOCUMENT ID: [id number] KAILA CONLEY MD at 1213 CC: [id number] DICTATION DATE: 04/30/19 1424 STUDENT: 04/30/19 1631 ADM IN [id number] [place] [address]
[2019-05-01 19:30] VITALS: BP 128/64
--- NOTE | 2019-05-02 01:18 | NUR ---
B.) PT IS ALERT AND ORIENTED TO SELF, TIME AND SITUATION. HE IS ABLE TO AMBULATE ON HIS OWN WITHOUT ASSISTANCE. HE IS PLEASANT WITH STAFF AND PEERS. HE IS ANXIOUS ABOUT HIS UPCOMING COURT DATE WITH [facility]. I.) PROVIDED PM MEDICATIONS. R.) COMPLIANT WITH ALL MEDICATIONS. P.) CONTINUE PLAN OF CARE
[2019-05-02 08:00] VITALS: BP 129/63
--- NOTE | 2019-05-02 09:38 | NUR ---
PT IS AWAKE AND ALERT TO PERSON, TIME, AMD PLACE. CALM AMD COOPERATIVE WITH ASSESSMENT. PT IS SOCIALIZING WITH PEERS AT DINING ROOM TABLE. PT IS PLEASANT AT THIS TIME. PRESCRIBED MEDS PROVIDED PER STAFF. MED COMPLIANT. REDIRECT AND REORIENT NEEDED. WILL CPOC.
[2019-05-02 20:00] VITALS: BP 119/47
--- NOTE | 2019-05-02 20:53 | PN ---
PATIENT:ROLANDA CALLOWAY MEDICAL RECORD: [id number] LOCATION:[facility] ADMISSION DATE: 04/15/19 PROGRESS NOTE DATE OF SERVICE: 05/01/2019 SUBJECTIVE: The patient's case was discussed with staff. He has no new complaint. OBJECTIVE: The patient is angry and again feels that he is not being treated fairly or given proper due process. He has no thoughts of harming himself. He claims he has had visual hallucinations, but not auditory. He claims that he has never had auditory hallucinations, but he has had visual hallucinations, but none recently. Very recently, he has also had paranoid delusions as he believed that he was being poisoned, believed that the medicines that were being given on the unit were poison and he was not at all bashful about trying to tell the other patients not to take their medicines because it is poison. ASSESSMENT: Dementia. PLAN: The patient is taking an antipsychotic medication, which I do believe has helped. He continues to plan his defense in this guardianship matter and he again is angry because the process is taking so long and he thinks the entire process is inappropriate. TRANSINT:[id number] Voice Confirmation ID: [id number] DOCUMENT ID: [id number] KAILA CONLEY MD at 2053 CC: [id number] DICTATION DATE: 05/01/19 1301 MIXER OPERATOR: 05/01/19 1326 ADM IN [facility] [address] [place] [address]
--- NOTE | 2019-05-02 21:06 | NUR ---
RECEIVED IN HALLWAY. STANDING AT NURSES STATION. CALM AND COOPERATIVE WITH CARE AND ASSESSMENT. NO SIGNS OF HALLUCINATIONS OR PARANOIA. REDIRECT AND REORIENT NEEDED. RESTING IN BED WITH EYES CLOSED. CONTINUE PLAN OF CARE
[2019-05-02] MEDS ORDERED: PERPHENAZINE2 MG PO (21:11)
[2019-05-02] MEDS ORDERED: DONEPEZIL HCL10 MG PO (21:11)
[2019-05-03 08:30] VITALS: BP 139/67
--- NOTE | 2019-05-03 10:59 | NUR ---
PT IS VERY HYPERVERBAL THIS MORNING REGARDING UPCOMING COURT DATE. PT WAS CALM AND COOPERATIVE WITH ASSESSMENT. PRESCRIBED MEDS PROVIDED. MED COMPLIANT. PT IS RESTLESS AT THIS TIME DUE TO UPCOMING COURT DATE. REDIRECT AND REORIENT NEEDED. WILL CPOC.
--- NOTE | 2019-05-03 15:38 | PN ---
PATIENT:ROLANDA CALLOWAY MEDICAL RECORD: [id number] LOCATION:[facility] ADMISSION DATE: 04/15/19 PROGRESS NOTE DATE OF SERVICE: 05/02/2019 SUBJECTIVE: The patient's case was discussed with staff. He has no new complaint. OBJECTIVE: The patient is very angry about the proceedings that have taken place. He is very much wanting to go to court and explain his situation to the administrative law judge. I think that is perfectly reasonable. What is not perfectly reasonable is what his expectation that he go tomorrow. He is currently under custody of adult protective services. It is my impression that he has a moderately advanced dementia and that he is not capable of making reasonable informed consent decisions. He has been approved by the [facility]. He will be transitioned there tomorrow. TRANSINT:[id number] Voice Confirmation ID: [id number] DOCUMENT ID: [id number] KAILA CONLEY MD at 1538 CC: [id number] DICTATION DATE: 05/02/192106 WOOL GRADER: 05/03/19 0016 ADM IN [facility] [address] [place] [address]
[2019-05-03 23:24] VITALS: BP 138/62
--- NOTE | 2019-05-04 01:02 | NUR ---
RECEIVED IN [facility]. STANDING AT NURSES STATION TALKING ABOUT HIS SITUATION HERE ON HALFWAY. CONFUSED TO HIS SITUATION. STATES THAT THERE IS NOTHING WRONG WITH HIM AND THE DOCTOR IS JUST OUT TO GET HIM FOR SOME REASON. REDIRECTED TO REALITY BUT CONTINUES TO STATE THAT HE HAS NOTHING WRONG WITH HIM AND WANT STAFF TO GO TO COURT AND TELL THEM HE IS FINE. RESTING IN BED WITH EYES CLOSED AT THIS TIME. CONTINUE PLAN OF CARE
--- NOTE | 2019-05-04 02:00 | NUR ---
PT VERY ARGUMENTATIVE WITH STAFF. DEMANDING TO GET HIS WAY. YELLING OUT LOUDLY IN HALLWAY WHILE OTHER PATIENTS ARE SLEEPING. CALLING NURSE VULGAR NAMES.
[2019-05-04 09:00] VITALS: BP 121/55
--- NOTE | 2019-05-04 10:28 | NUR ---
PT IS AWAKE AND ALERT. PT IS CALM AND COOPERATIVE WITH ASSESSMENT. PT DENIES ANY SI AT THIS TIME. MED COMPLIANT. REDIRECT AND REORIENT NEEDED. NO BEHAVIORS NOTED AT THIS TIME. WILL CPOC.
--- NOTE | 2019-05-04 11:54 | PN ---
PATIENT:ROLANDA CALLOWAY MEDICAL RECORD: [id number] LOCATION:[facility] ADMISSION DATE: 04/15/19 PROGRESS NOTE DATE OF SERVICE: 05/03/2019 SUBJECTIVE: The patient's case was discussed with staff. He has no new complaint. OBJECTIVE: The patient is in good behavioral control with poor insight about his situation. ASSESSMENT: Dementia. PLAN: The patient will be transitioned out of the hospital tomorrow. He is going to go to the [facility]. It is my understanding that the following day, he will have his day in court which makes him very happy to know that he is finally going to get to explain his version of things to the special certificate dictator. Just having bad information seems to have relieved a great deal of his agitation. His situation is truly unfortunate. TRANSINT:[id number] Voice Confirmation ID: [id number] DOCUMENT ID: [id number] KAILA CONLEY MD at 1154 CC: [id number] DICTATION DATE: 05/03/19 170 MANAGER ORACLE DATABASE: 05/03/191956 ADM IN [place] [address] [place] [address]
--- NOTE | 2019-05-04 16:13 | NUR ---
REPORT CALLED TO NURSE LUTHER AT [facility]. ALL PAPERWORK FAXED AND COPY WILL BE SENT WIT PT AT TIME OF DISCHARGE.
--- NOTE | 2019-05-04 17:00 | NUR ---
PT DISCHARGE TO [facility] WITH HOSPITAL CLEANER. NO S/SX OF DISTRESS NOTED. ALL PAPERWORK SENT WITH PT AT THIS TIME.
--- NOTE | 2019-05-05 12:24 | PN ---
PATIENT:ROLANDA CALLOWAY MEDICAL RECORD: [id number] LOCATION:[facility] ADMISSION DATE: 04/15/19 PROGRESS NOTE DATE OF SERVICE: 05/04/2019 SUBJECTIVE: The patient's case was discussed with staff. He has no new complaint. OBJECTIVE: The patient is in good behavioral control. He is impaired cognitively. He is looking forward to his court hearing tomorrow. He denies that he would seek to harm himself. ASSESSMENT: Dementia. PLAN: The patient will be transitioned out of the hospital today. He is going to go to the [facility]. TRANSINT:[id number] Voice Confirmation ID: [id number] DOCUMENT ID: [id number] KAILA CONLEY MD at 1224 CC: [id number] DICTATION DATE: 05/04/19 1226 PERIODONTIST: 05/04/19 1233 DIS IN 05/04/19 [facility] [address] [place] [address]
--- NOTE | 2019-05-15 12:38 | DS ---
PATIENT:ROLANDA CALLOWAY :41 MEDICAL RECORD: [id number] DISCHARGE SUMMARY ADMISSION DATE: 04/15/19 DISCHARGE DATE: 05/04/19 IDENTIFYING DATA: The patient is 74 years old and he was admitted to the hospital on a voluntary basis because of confusion. The patient was homeless and demented. He had been to the hospital several times in the past few weeks and also had several encounters with an adult protective services semiconductor lab technician. The patient apparently is a [place] combat and he tells me he has posttraumatic stress disorder. About a month ago, he was delusional and having hallucinations and presented to the hospital. He subsequently left after 1 day. He also has had parasitosis and believed that there were bugs all over him. When I interviewed him, he was actively hallucinating but denied that he wanted to harm himself. He also had evidence of very significant cognitive impairment. He denied recent drug or alcohol abuse. HOSPITAL COURSE: The patient was admitted to the hospital and fully evaluated from both the medical, psychological, and social standpoint. He was treated with both mood stabilizing and memory enhancing medications. He showed some improvement but continued to have intermittent psychotic symptoms. An antipsychotic medication was added to his regimen and he quickly had a resolution of those non-real beliefs. Unfortunately, the patient has significant dementia and it is not reasonable for him to care for himself. His situation is further complicated by the fact that he is a naturalized [place] and has no close family or relatives in the [place] that were willing to care for him. He is or was well above average in intelligence and high functioning. 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 His verbal skills give him the appearance of being more intact than he actually is. He understandably is very upset about being placed here and under the watchful eye of adult protective services who have taken custody of him and placed him in a custodial. He was not behaviorally out of control with this, did not threaten anyone or attack anyone, but it was almost impossible to explain to him the situation because he asked so many questions that I cannot answer. He wanted every detail about what has happened and who saw him doing what and when and where is that documented and can he see it, I am sure this is related to his legal training. DISCHARGE DIAGNOSES: AXIS I: Major neurocognitive disorder of the Alzheimer's type and posttraumatic stress disorder. AXIS II: None. AXIS III: Benign prostatic hypertrophy. AXIS IV: Moderate stressors. AXIS V: Global Assessment Of Functioning is 40. PLAN: The patient was transferred to a custodial. I think that this is somewhat unfortunate since he could probably be managed in a supervised and a less restrictive environment, but he does not have the financial resources to live in an assisted living center and he does not have any family or friends who can live with him or have him come and live with them. The patient's long-term prognosis is poor. He will worsen as it is a progressive dementia and his superficial appearance and casual conversation are related as I stated above to his high intelligence, high verbal IQ, and training in a profession that is mostly verbal. He nevertheless is not capable of making reasonable decisions DISCHARGE SUMMARY REPORT [id number] ROLANDA CALLOWAY and it is my opinion that he requires the assistance that I have outlined and unfortunately, the only solution at this point is adult protective services having custody of the patient and the least restrictive environment is a custodial. TRANSINT:[id number] Voice Confirmation ID: [id number] DOCUMENT ID: [id number] KAILA CONLEY MD at 1238 CC: [id number] DICTATION DATE: 05/14/19 1520 TONNAGE COMPILATION CLERK: 05/14/192226 DIS IN 05/04/19 [place] [id number] [place] [address]
== END 2019-05-04 18:48 | DRG 57 ==
LOC: D.ER 09:01 → D.PSYCH 13:23
PROVIDERS: Family Medicine; ADMIT Psychiatry & Neurology Psychiatry; ATTEND Psychiatry & Neurology Psychiatry
DX: G30.9 Alzheimer's disease, unspecified (principal); F02.81 Dementia in other diseases classified elsewhere, unspecified severity, with behavioral disturbance; R44.0 Auditory hallucinations; F43.11 Post-traumatic stress disorder, acute; N40.0 Benign prostatic hyperplasia without lower urinary tract symptoms; F12.90 Cannabis use, unspecified, uncomplicated; R44.1 Visual hallucinations; K59.00 Constipation, unspecified

== ENCOUNTER 2020-03-27 10:02 | Inpatient (IN) | payer MEDICARE ==
[~2020-03-27] VITALS: Ht 180.3 cm; Wt 78.5 kg
[~2020-03-27 10:02] MED LIST: DONEPEZIL HCL10 MG PO; PERPHENAZINE2 MG PO
[2020-03-27] MEDS ORDERED: VITAMIN D1000 UNI1 PO (10:14)
[2020-03-27] MEDS ORDERED: CYMBALTA30 MG PO (10:14)
[2020-03-27] MEDS ORDERED: MYSOLINE 50 MG50 MG PO (10:15)
[2020-03-27] MEDS ORDERED: RISPERDAL1 MG PO (10:16)
[2020-03-27] MEDS ORDERED: SENNA LAXATIVE8.6 MG PO (10:19)
[2020-03-27 10:45] LABS: BASOPHILS 0.4 % (0-2); EOSINOPHILS 1.4 % (0-7); HEMATOCRIT 40.9 % (42.0-54.0); HEMOGLOBIN 14.1 g/dL (13.5-17.5); IMMATURE GRANULOCYTES 0.2 % (0-5); LYMPHOCYTES 30.5 % (15-50); MCH 32.5 pg (26.0-34.0); MCHC 34.5 g/dL (31.0-37.0); MCV 94.2 fL (80.0-100.0); MEAN PLATELET VOLUME 9.4 fL (7.4-10.4); NEUTROPHILS 58.5 % (40-80); PLATELET COUNT 145 10x3/uL (130-400); RBC 4.34 10x6/uL (4.20-6.10); RDW 12.3 % (11.5-14.5); WBC 5.1 10x3/uL (4.8-10.8)
[2020-03-27 10:53] LABS: ANION GAP 10.1 mmol/L (8-16); CARBON DIOXIDE 26.7 mmol/L (21.0-32.0); CREATININE - SERUM 1.2 mg/dL (0.6-1.3); POTASSIUM - SERUM 3.8 mmol/L (3.5-5.1)
[2020-03-27 11:09] LABS: ALBUMIN 3.6 g/dL (3.4-5.0); BILIRUBIN - TOTAL 0.88 mg/dL (0.2-1.3); PROTEIN - SERUM 7.4 g/dL (6.4-8.2); THYROID STIMULATING HORMONE 0.93 uIU/mL (0.36-3.74)
[2020-03-27 11:27] LABS: UDS - AMPHET NEGATIVE QUAL (NEGATIVE); UDS - BARB NEGATIVE QUAL (NEGATIVE); UDS - BENZO NEGATIVE QUAL (NEGATIVE); UDS - COCAINE NEGATIVE QUAL (NEGATIVE); UDS - OPIATE NEGATIVE QUAL (NEGATIVE); UDS - PCP NEGATIVE QUAL (NEGATIVE); UDS - THC NEGATIVE QUAL (NEGATIVE)
--- NOTE | 2020-03-27 14:50 | NUR ---
PT ADMITTED TO CORRECTION FROM [facility] FOR ALTERED THOUGHT PROCESS AND AGGRESSION. THIS NURSE ATTEMPT TO CALL MARIA ESTHER APS WORKER, NO ANSWER LEFT VOICEMAIL TO CALL THE UNIT. YAKELIN HARTMAN ATTEMPTED TO CONTACT MARIA ESTEHR APS WORKER WELL, NO ANSWER LEFT MESSAGE. PT IS FULL CODE. PT CODE # IC [id number]. PT IS ON ISOLATION DUE TO PENDING COVID RESULTS. MARIA ESTHER [place] CLAIM APPROVER # [phone].
[2020-03-27 17:34] VITALS: BP 174/87; BMI 24.2
--- NOTE | 2020-03-27 19:00 | NUR ---
PER LAB RESULTS COVID IS NEGATIVE, ISOLATION DC.
[2020-03-27 20:06] VITALS: BP 143/72
--- NOTE | 2020-03-27 21:39 | NUR ---
B.) PT IS ALERT AND ORIENTED TO SELF AND PLACE. HE IS ABLE TO AMBULATE ON HIS OWN. HE IS CALM AND COOPERATIVE WITH STAFF. HE IS INTERACTING WELL IN GROUP TONITE. WHEN OFFERED A SHOWER HE RELATED THAT HE LIKES TO GET USED TO HIS SURROUNDINGS BEFORE SHOWERING. I.) PROVIDED PM MEDICATIONS PRESCRIBED. REDIRECT NEEDED. R.) COMPLIANT WITH ALL MEDICATIONS. EASY TO REDIRECT. P.) WILL CONTINUE TO MONITOR.
--- NOTE | 2020-03-27 23:40 | NUR ---
PT CALLED FOR TECH TO COME TO HIS ROOM. HE EXPOSED HIMSELF TO TECH AND BEGGED TO TOUCH HER. SHE INFORMED HIM THAT HIS BEHAVIOR IS INAPPROPRIATE AND TO GO TO BED. HE CONTINUE TO BE INAPPROPRIATE STATING "ITS BEEN SO LONG." NURSE ATTEMPTED TO REDIRECT AND REINSTATED THAT HIS BEHAVIOR IS INAPPROPRIATE AND HE IS TO GO TO BED ALONE. WILL CONTINUE TO MONITOR.
--- NOTE | 2020-03-28 04:42 | NUR ---
PT GROANING IN SLEEP. HE RELATES THAT HE THOUGHT HE WAS IN A HOSPITAL. REDIRECTED. LAYING IN BED.
[2020-03-28 06:13] LABS: BASOPHILS 0.4 % (0-2); EOSINOPHILS 2.9 % (0-7); HEMATOCRIT 39.5 % (42.0-54.0); HEMOGLOBIN 13.3 g/dL (13.5-17.5); IMMATURE GRANULOCYTES 0.2 % (0-5); LYMPHOCYTES 40.2 % (15-50); MCHC 33.7 g/dL (31.0-37.0); MCV 95.2 fL (80.0-100.0); MEAN PLATELET VOLUME 9.3 fL (7.4-10.4); MONOCYTES 9.4 % (2-11); NEUTROPHILS 46.9 % (40-80); PLATELET COUNT 157 10x3/uL (130-400); RBC 4.15 10x6/uL (4.20-6.10); RDW 12.3 % (11.5-14.5); WBC 4.9 10x3/uL (4.8-10.8)
[2020-03-28 06:54] LABS: ALBUMIN 3.6 g/dL (3.4-5.0); ANION GAP 7.7 mmol/L (8-16); BILIRUBIN - TOTAL 0.97 mg/dL (0.2-1.3); CALCIUM 8.9 mg/dL (8.5-10.1); CHOL - HDL RATIO 3.4 ratio (2.3-4.9); CREATININE - SERUM 1.2 mg/dL (0.6-1.3); LDL-HDL RATIO 2.2 ratio (1.5-3.5); POTASSIUM - SERUM 3.7 mmol/L (3.5-5.1); PROTEIN - SERUM 6.8 g/dL (6.4-8.2)
[2020-03-28 08:02] VITALS: BP 136/67
--- NOTE | 2020-03-28 10:00 | NUR ---
MARIA ESTHER STOCK APS POULTRY SERVICE TECHNICIAN RETURNED CALL FROM YESTERDAY REGARDING CONSENT. VERBAL CONSENT REC'D TO TREAT PT.
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
--- NOTE | 2020-03-28 12:00 | NUR ---
RECEIVED IN HALLWAY OUTSIDE OF NURSES STATION. CALM AND COOPERATIVE WITH CARE AND ASSESSMENT. NO SEXUALLY INAPPROPRIATE BEHAVIOR TODAY. PATIENT BECOMES VERY ARGUMENTATIVE AT TIMES. REDIRECT AND REORIENT NEEDED. EATING AT THIS TIME. CONTINUE PLAN OF CARE.
[2020-03-28 12:22] VITALS: Ht 180.3 cm; Wt 78.5 kg
[2020-03-28 14:39] LABS: BILIRUBIN NEGATIVE (NEGATIVE); KETONE NEGATIVE (NEGATIVE); NITRITE NEGATIVE (NEGATIVE); UROBILINOGEN NORMAL mg/dL (< 2)
[2020-03-28 20:23] VITALS: BP 120/63; BP 152/58
--- NOTE | 2020-03-29 05:15 | NUR ---
PATIENT COMPLAINING OF LEFT HIP PAIN AT LEVEL # 7. TYLENOL 650MG PO GIVEN.
[2020-03-29 09:56] VITALS: BP 170/60
--- NOTE | 2020-03-29 13:58 | NUR ---
Nutrition Follow-up: Diet: Regular Double Portions PO intake: ~73% average x last 3 meals Last BM: none since admit. WT: 173# (03/28/20) Meds noted: sanjiv narvaez Labs reviewed Recommend continue current diet. RD following.
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
--- NOTE | 2020-03-29 15:14 | NUR ---
PT SITTING IN CHAIR WITH EYES OPEN. PT IS CONFUSED AND ALERT PERSON AND PLACE. PT CAN MAKE NEEDS KNOWN. PT HAS NOT HAD ANY BEHAVIORS AT THIS TIME. PT WAS VERY PARANOID ABOUT MORNING MEDS. NURSE WENT OVER MEDS TOGETHER. PT DID REFUSED ONE MED. PT IS CALM AND EASY TO REDIRECT. WILL CONT PLAN OF CARE.
--- NOTE | 2020-03-29 19:04 | NUR ---
PT TOUCHED NURSE INAPPOPRIATE WITH NURSE CHEST. NURSE REDIRECTED PT BEHAVIOR. PT TOLERATED REDIRECTION WELL.
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
--- NOTE | 2020-03-30 09:00 | NUR ---
PRN EFFECTIVE AT THIS TIME.
--- NOTE | 2020-03-30 11:35 | NUR ---
PATIENT RAISING HIS VOICE AND ARGUING WITH UNSEEN INDIVIDUALS.
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
--- NOTE | 2020-03-30 14:43 | NUR ---
PT ASLEEP MUCH OF THE SHIFT, OCCASIONALLY YELLING OUT AND ARGUING WITH UNSEEN INDIVIDUALS. PT MOST UNCOOPERATIVE WITH REQUESTS. HOWEVER, PATIENT IS MEDICATION COMPLIANT. PT VERY AGGRESSIVE EARLIER THIS SHIFT, KICKING, HITTING, AND BITING STAFF WITH A PRN BEING ADMIN AT THAT TIME. CONTINUE PLAN OF CARE, MONITORING FOR INCREASED AGGRESSION AND INAPPROPRIATE BEHAVIORS.
[2020-03-30 20:13] VITALS: BP 135/63
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
--- NOTE | 2020-03-31 10:43 | NUR ---
The patient is asleep, he did wake up for breakfast, he tries to be argumentative, but he is still a little groggy at this time. He is not happy to be here and he asked "Why am I here?" he has forgotten where he lives when he is not here. Provide prescribed meds. The patient is compliant with meds, but he needs much prompting. He holds his medication in his mouth with his water. He is unsteady, and he needs assist with toileting and meals today. Continue POC.
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
--- NOTE | 2020-03-31 12:40 | NUR ---
The patient calmed down and he did not curse and fight, he fell asleep for a short time. Eyes closed, even, unlabored breathing.
--- NOTE | 2020-03-31 17:42 | NUR ---
The patient is starting to cuss and kick his legs out, staff trying to feed him and he is saying he is hungry and staff fed him then he became irritated, but staff did not provide his entire tray as he throws his tray. He then became irritated. He is hallucinating, talking to and cursing unseen others. Provide ativan 0.5 mg and haldol 2 mg IM in his tight deltoid, but he did fight and threaten. Will monitor his mood and behavior.
--- NOTE | 2020-04-01 03:02 | NUR ---
B) Patient is alert and oriented to self, combative and argumentive, tries to hit and kick staff, I) Administered scheduled medications as ordered, redirected as needed, PRN Ativan 0.5 mg IM and Haldol 2 mg IM given for anxiety R) Mediation compliant, resting quietly in alexia chair in hallway P) Continue plan of care.
--- NOTE | 2020-04-01 07:25 | NUR ---
The patient at this time is sleeping, he has his eyes closed and even, unlabored breathing. Staff took his vital signs and he did not awaken. Will monitor his behavior and mood when he does wake up. Provide prescribed meds. Continue POC.
[2020-04-01 07:28] VITALS: BP 110/78
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
--- NOTE | 2020-04-01 08:38 | NUR ---
The patient continues to curse and spit out into the air and say "Ya bastards." Using the "F" word and hallucinating, talking to unseen others.
--- NOTE | 2020-04-01 08:49 | NUR ---
The patient is cursing and he is loud, he is getting other patients upset with his cursing and yelling. Ativan 0.5 mg and Haldol 2 mg IM provided in the right arm. Will monitor.
--- NOTE | 2020-04-01 12:37 | NUR ---
The patient is yelling and he is upsetting other patients, one lady especially gets very upset with his yelling. Provide ativan 0.5 mg and haldol 2 mg IM.
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
--- NOTE | 2020-04-01 16:07 | NUR ---
The patient is awakening and he is opening his eyes, he is halluciniating and he is taking off his clothes. Offered him water to drink, but he grabbed the drink and he squeezed it so hard until the styrofoam cup broke and water and ice flew out. Will monitor his mood and behavior. He is talking nonsensical and interjects in other people's conversations.
--- NOTE | 2020-04-01 16:16 | NUR ---
The patient is winding himself up, he is getting agitated and he is not making any sense. He is pulling off his clothes, when staff redirect him he tries to fight and swat, he tries to bite when staff get close to him. Ativan 0.5 mg and Haldol 2 mg IM in the right deltoid. Monitor his mood. He continues to hallucinate and make snide remarks. He tells staff and anyone that walks by him that they are sluts.
--- NOTE | 2020-04-01 17:51 | NUR ---
Staff attempted to assist him with his dinner, but he pushed staff away and he ate a bite or two then pushed staff away. Put a piece of cornbread in front of him to eat himself, but he pushed staff away again. He is mumbling, but it is difficult to understand him.
--- NOTE | 2020-04-01 20:10 | NUR ---
B.) PT IS ALERT AND ORIENTED TO SELF. HE IS OBSERVED SLEEPING IN HIS GERICHAIR MUMBLING TO HIMSELF. HE INTERACTED WITH STAFF BUT DIDN'T OPEN EYES. I.) PROVIDED PM MEDICATIONS PRESCRIBED. REDIRECT NEEDED. R.) COMPLIANT WITH ALL MEDICATIONS. DIFFICULT TO REDIRECT AT TIMES. P.) WILL CONTINUE TO MONITOR.
--- NOTE | 2020-04-01 21:12 | NUR ---
PT AGGRESSIVE WITH STAFF WHEN ASSISTED TO THE BED. UNABLE TO REDIRECT AT THIS TIME. ADMINISTERED PRN ATIVAN 0.5 MG IM AND HALDOL 2 MG IM. WILL CONTINUE TO MONITOR.
--- NOTE | 2020-04-02 07:28 | NUR ---
The patient is sleeping at this time, he awakens when some of the other patients talk loudly and he will say "Shut the hell up" in a loud manner. He upsets the other patient's with his loud outbursts because it often comes from out of no where. He has stripped his gown off, staff assisted him with his gown on, took v/s and assessed him. Provide prescribed meds and administer prn meds as needed. Offer fluids every 2 hours and assist to toilet. The patient is a two to three person assist to stand and transfer. Continue POC.
--- NOTE | 2020-04-02 08:15 | NUR ---
The patient is taken to the day room and he began fighting staff, he grabbed the door frame, and the phone cord and he would not release it. He grabbed Pia Melgozarum MHT's hand, scratched it and squeezed it. He is hallucinating and speaking nonsensical. Ativan 0.5 mg and Haldol 2 mg IM ptovided in the left deltoid. Monitor his mood and behavior. He continues to rant and rave and be loud.
[2020-04-02 09:29] VITALS: BP 144/68
--- NOTE | 2020-04-02 09:50 | NUR ---
Offered the patient ensure and water. He drank it in a small medicine cup as he has thrown cups and plates recently. Will offer him fluids every 2 hours while he is awake. Offered him something to eat, he declines. At this time he is awake and hallucinating, making no sense.
--- NOTE | 2020-04-02 12:23 | NUR ---
The patient awakened enough to sit up and eat, he kept his eyes open for a few bites. He is hallucinating and he called out for "Jess" He is mumbling and has poor insight into his situation. Will continue to monitor.
--- NOTE | 2020-04-02 14:43 | NUR ---
The patient is waking up and he is yelling "Hey, have you seen the keys? Someone tell me if you have the keys?" He is speaking nonsensical and he yells at the top of his lungs and it scares the other patients. Ativan 0.5 mg and Haldol 2 mg IM in left deltoid. Will monitor his mood and behavior.
--- NOTE | 2020-04-02 19:17 | NUR ---
RECEIVED IN DAYROOM. SITTING IN A RECLINER AT THE TABLE. CALM AND COOPERATIVE WITH CARE AND ASSESSMENT. NO SEXUALLY INAPPROPRAITE BEHAVIORS OR AGGRESSION AT THIS TIME. REDIRECT AND REORIENT NEEDED. CONTINUES TO SIT CALMLY IN DAYROOM. CONTINUE PLAN OF CARE.
[2020-04-02 20:34] VITALS: BP 122/72
--- NOTE | 2020-04-03 07:45 | NUR ---
REC'D PT IN RECLINING CHAIR RESTING IN HALLWAY BY NURSES STATION. AWAKE AND ALERT TO PERSON ONLY. PRESCRIBED MEDS PROVIDED ORDERED. MED COMPLIANT. NO AGGRESSION NOTED AT THIS TIME. PT CAN BECOME VERY AGGRESSIVE WITH STAFF AND OTHER PTS. REDIRECT AND REORIENT NEEDED. WILL CPOC.
[2020-04-03 08:09] VITALS: BP 113/62
--- NOTE | 2020-04-03 08:24 | PN ---
PATIENT:ROLANDA CALLOWAY MEDICAL RECORD: [id number] LOCATION:[facility] ADMISSION DATE: 03/27/20 PROGRESS NOTE DATE OF SERVICE: 03/30/2020 SUBJECTIVE: The patient's case was discussed with staff. He has no new complaint. OBJECTIVE: The patient is in poor behavioral control, was very aggressive this morning, hitting, kicking, and biting staff. He is sleeping right now and although arousable is not really able to provide much in the way of useful information. ASSESSMENT: Dementia. PLAN: I am going to treat the patient with Geodon for his aggressive behavior. He will be monitored for clinical changes associated with its use. TRANSINT:[id number] Voice Confirmation ID: [id number] DOCUMENT ID: [id number] KAILA CONLEY MD at 0824 CC: [id number] DICTATION DATE: 03/30/20 1443 JAVA J2EE SOFTWARE ENGINEER: 03/30/20 2139 ADM IN [facility] [address] [place] [address]
--- NOTE | 2020-04-03 19:42 | NUR ---
RECEIVED IN DAYROOM. SITTING IN A CHAIR AT THE TABLE BY HIMSELF. VERY CONFUSED. NO SIGNS OF SEXUALLY INAPPROPRIATE BEHAVIOR. NO SIGNS OF AGGRESSION. REDIRECT AND REORIENT NEEDED. CONTINUES TO SIT CALMLY IN DAYROOM. CONTINUE PLAN OF CARE.
[2020-04-03 22:05] VITALS: BP 144/77
--- NOTE | 2020-04-04 07:20 | NUR ---
PT IS COMBATIVE WITH STAFF. PT IS HITTING, KICKING, AND SPITTING AT STAFF. PT UNABLE TO REDIRECT PT AT THIS TIME. HALDOL 2MG IM AND ATIVAN 0.5MG IM GIVEN PER PRN ORDERS. WILL CPOC.
--- NOTE | 2020-04-04 07:55 | PN ---
PATIENT:ROLANDA CALLOWAY MEDICAL RECORD: [id number] LOCATION:[facility] ADMISSION DATE: 03/27/20 PROGRESS NOTE DATE OF SERVICE: 04/03/2020 SUBJECTIVE: The patient's case was discussed with staff. He has no new complaint. OBJECTIVE: The patient has remained intermittently aggressive and disruptive. ASSESSMENT: Dementia. PLAN: The patient will be treated with a higher dose of Seroquel. He will be monitored for clinical changes associated with its use. His long-term prognosis is guarded. TRANSINT:[id number] Voice Confirmation ID: [id number] DOCUMENT ID: [id number] KAILA CONLEY MD at 0755 CC: [id number] DICTATION DATE: 04/03/20 1556 FIRE INVESTIGATION LIEUTENANT: 04/03/20 2249 ADM IN [facility] [address] [place] [address]
--- NOTE | 2020-04-04 14:57 | NUR ---
PT IS VERY AGGRESSIVE WITH STAFF DURING SHOWER. PT KICKING, CUSSING, YELLING, AND SPITTING AT STAFF. PT SHOWER COMPLETED PER STAFF X 3. UNABLE TO REDIRECT HALDOL 2MG IM AND ATIVAN 0.5MG IM GIVEN PER PRN ORDER. PT TOOK OFF GOWN AND BLANKET THREW IT AT STAFF. STAFF ATTEMPTED TO COVER PT. PT CONTINUES TO THROW ITEMS AT THE STAFF. WILL CPOC.
--- NOTE | 2020-04-04 19:49 | NUR ---
RECEIVED IN DAYROOM. SITTING IN A CHAIR AT THE TABLE. AGRESSION WITH STAFF DURING CARE. VERY CONFUSED. REDIRECT AND REORIENT NEEDED. CONTINUES TO SIT AT TABLE IN DAYROOM. CONTINUE PLAN OF CARE.
[2020-04-04 20:59] VITALS: BP 126/82
--- NOTE | 2020-04-05 07:36 | NUR ---
REC'D PT IN BED WITH EYES OPEN. AWAKE AND ALERT TO PERSON ONLY. STAFF ATTEMPTED TO GET PT UP FOR THE DAY. PT BECAME VERY COMBATIVE WITH STAFF. PT KICKING, HITTING, AND YELLING AT THIS TIME. STAFF X 4 GOT PT UP INTO RECLINING CHAIR. PT STILL VERY COMBATIVE AT THIS TIME. PRN HALDOL 2MG IM AND ATIVAN 0.5MG IM GIVEN PER PRN ORDERS. WILL CONTIUE TO MONITOR AND WILL CPOC.
[2020-04-05 09:31] VITALS: BP 132/77
--- NOTE | 2020-04-05 10:34 | NUR ---
Nutrition Follow-up: Chart reviewed. Noted patient has had poor PO intake lately per MD notes. Is drinking ~2 Ensure/day. Diet: Regular double portions PO intake: ~24% average x last 9 meals Last BM: 04/04/20. Wt: 173# (03/28/20) Meds noted: dyanbacilio (started 04/02/20), senokot. No new chem labs Recommend continue current Regular diet. Will decrease meals to regular/single portions as to not overwhelm him at meal times. Recommend continue oral nutrition supplements and appetite stimulant. RD following.
--- NOTE | 2020-04-05 13:55 | PN ---
PATIENT:ROLANDA CALLOWAY MEDICAL RECORD: [id number] LOCATION:[facility] ADMISSION DATE: 03/27/20 PROGRESS NOTE DATE OF SERVICE: 04/04/2020 SUBJECTIVE: The patient's case was discussed with staff. He has no new complaint. OBJECTIVE: The patient continues to have aggressive, disruptive behavior, and is requiring p.r.n. medication to address this. He is sleepy now, but arousable, but he just received a Haldol injection a couple of hours before I saw him because of his agitated behavior. ASSESSMENT: Dementia. PLAN: The patient will be maintained on current medicines. I am going to start him on Klonopin for his agitation. He will be monitored for clinical changes associated with it. TRANSINT:[id number] Voice Confirmation ID: [id number] DOCUMENT ID: [id number] KAILA CONLEY MD at 1355 CC: [id number] DICTATION DATE: 04/04/20 1202 FARE ENFORCEMENT OFFICER: 04/04/20 1402 ADM IN [facility] [id number] [place] [address]
[2020-04-05 20:13] VITALS: BP 145/85
--- NOTE | 2020-04-05 23:29 | NUR ---
B) Patient is alert and oriented to self, difficult and abusive to staff, combative with care, I) Administered scheduled medications crushed in apple sauce, R) Medication compliant, P) Continue plan of care.
--- NOTE | 2020-04-06 08:25 | PN ---
PATIENT:ROLANDA CALLOWAY MEDICAL RECORD: [id number] LOCATION:[facility] ADMISSION DATE: 03/27/20 PROGRESS NOTE DATE OF SERVICE: 04/05/2020 SUBJECTIVE: The patient's case was discussed with staff. He has no new complaint. OBJECTIVE: The patient continues to be disruptive and agitated, particularly with personal care. ASSESSMENT: Dementia. PLAN: Current medicines have been reviewed. I am going to discontinue the trazodone. I do think the medication changes I made yesterday have had an opportunity to be fully effective. TRANSINT:[id number] Voice Confirmation ID: [id number] DOCUMENT ID: [id number] KAILA CONLEY MD at 0825 CC: [id number] DICTATION DATE: 04/05/201603 PICTURE FRAME MAKER: 04/06/20 0003 ADM IN [facility] [address] [place] [address]
[2020-04-06 10:14] LABS: ALBUMIN 3.6 g/dL (3.4-5.0); ANION GAP 18.7 mmol/L (8-16); BILIRUBIN - TOTAL 1.45 mg/dL (0.2-1.3); CALCIUM 9.9 mg/dL (8.5-10.1); CARBON DIOXIDE 26.5 mmol/L (21.0-32.0); CREATININE - SERUM 1.4 mg/dL (0.6-1.3); POTASSIUM - SERUM 4.2 mmol/L (3.5-5.1); PROTEIN - SERUM 8.2 g/dL (6.4-8.2)
--- NOTE | 2020-04-06 10:24 | NUR ---
The patient is yelling out and he is telling the other patient's to "Shut up" He is scaring them. he randomly yells. He is hallucinating and he is talking nonsensical. He does not want anyone to help him drink or eat. He needs help to toilet, eat, and transfer. Provide prescribed meds. The patient is compliant with meds crushed in an ensure. Provided Haldol 2 mg IM in right arm. Continue POC.
[2020-04-06 10:29] LABS: HEMATOCRIT 44.8 % (42.0-54.0); HEMOGLOBIN 15.3 g/dL (13.5-17.5); LYMPHOCYTES 20.2 % (15-50); MCH 32.4 pg (26.0-34.0); MCHC 34.2 g/dL (31.0-37.0); MCV 94.9 fL (80.0-100.0); MEAN PLATELET VOLUME 9.2 fL (7.4-10.4); NEUTROPHILS 69.4 % (40-80); RBC 4.72 10x6/uL (4.20-6.10); RDW 12.3 % (11.5-14.5); WBC 9.4 10x3/uL (4.8-10.8)
[2020-04-06 10:30] LABS: PLATELET COUNT 204 10x3/uL (130-400)
--- NOTE | 2020-04-06 12:31 | NUR ---
NOTED LAB VALUE OF SODIUM AT 152. PAGED DR. OREILLY AWAITING CALLBACK.
--- NOTE | 2020-04-06 16:00 | NUR ---
NOTIFIED DR. OREILLY ABOUT SODIUM ON PT. NEW ORDER: REPEAT LABS IN THE A.M. SWALLOW EVAL ORDERED WELL.
[2020-04-06 20:09] VITALS: BP 131/77
--- NOTE | 2020-04-07 01:20 | NUR ---
B) patient is sedaated/sleeping in gerichair, combative with care, I) Administered scheduled medication as ordered, meds crushed R) Mediation compliant, sleeping now in gerichair. P) Continue plan of care.
--- NOTE | 2020-04-07 07:28 | NUR ---
The patient is sleeping in the alexia chair in the hallway at this time. Lab came and kitty blood. He is quiet at this time. He has not shown any aggression at this time. Provide prescribed meds. The patient is compliant with meds if crushed in a drink or food. Encourage fluids frequently. Monitor mood and behavior. Continue POC.
[2020-04-07 07:32] LABS: BASOPHILS 0.2 % (0-2); EOSINOPHILS 0.1 % (0-7); HEMATOCRIT 45.8 % (42.0-54.0); HEMOGLOBIN 15.3 g/dL (13.5-17.5); IMMATURE GRANULOCYTES 0.4 % (0-5); LYMPHOCYTES 16.1 % (15-50); MCH 32.2 pg (26.0-34.0); MCHC 33.4 g/dL (31.0-37.0); MCV 96.4 fL (80.0-100.0); MEAN PLATELET VOLUME 9.8 fL (7.4-10.4); MONOCYTES 8.9 % (2-11); NEUTROPHILS 74.3 % (40-80); PLATELET COUNT 205 10x3/uL (130-400); RBC 4.75 10x6/uL (4.20-6.10); RDW 12.5 % (11.5-14.5); WBC 11.2 10x3/uL (4.8-10.8)
[2020-04-07 07:36] LABS: ANION GAP 17.5 mmol/L (8-16); CALCIUM 9.8 mg/dL (8.5-10.1); CARBON DIOXIDE 22.3 mmol/L (21.0-32.0); CREATININE - SERUM 1.5 mg/dL (0.6-1.3); POTASSIUM - SERUM 3.8 mmol/L (3.5-5.1)
--- NOTE | 2020-04-07 08:38 | PN ---
PATIENT:ROLANDA CALLOWAY MEDICAL RECORD: [id number] LOCATION:[facility] ADMISSION DATE: 03/27/20 PROGRESS NOTE DATE OF SERVICE: 04/06/2020 SUBJECTIVE: The patient's case was discussed with staff. He has no new complaint. OBJECTIVE: The patient is calmer today, but his lab is abnormal. He is dehydrated with an elevated BUN and sodium. ASSESSMENT: Dementia. PLAN: I am going to leave management of his electrolyte imbalances to the floor covering printer assistant. Behaviorally, he is better. I will monitor his progress. TRANSINT:[id number] Voice Confirmation ID: [id number] DOCUMENT ID: [id number] KAILA CONLEY MD at 0838 CC: [id number] DICTATION DATE: 04/06/201739 FACTORY MANAGER: 04/06/201746 ADM IN [facility] [address] [place] [address]
[2020-04-07 09:36] VITALS: BP 123/85
--- NOTE | 2020-04-07 12:41 | NUR ---
Offering the patient fluids, attempting to get him to drink, he becomes argumentative and doesn't want to drink. Made him a thickened applejuice and he did not like it, he asked for iced water, but he wanted to grab my hands and wanted some one else to make it. Offered him water and he drank a couple sips. Will continue to offer him fluids.
[2020-04-07 20:00] VITALS: BP 141/68
--- NOTE | 2020-04-07 20:21 | NUR ---
RECEIVED PATIENT IN DINING ROOM SITTING IN [facility], EXTREMELY CONFUSED, HOLLERS VERY LOUDLY IF HE IS TOUCHED AT ALL, HE SPIT HIS MEDS OUT, NOT ABLE TO REASON WITH HIM, WILL FOLLOW POC
--- NOTE | 2020-04-08 08:01 | NUR ---
YELLING OUT AND FIGHTING STAFF.WILL NOT REDIRECT.ATIVAN 0.5MG IM TO LEFT DELTOID GIVEN FOR ANXIETY.
--- NOTE | 2020-04-08 18:00 | NUR ---
SPOON FED ,CONSUMED 50%.COUGHING OBSERVED WHEN EATING PEAS AND DUMPLINGS.NO COUGHING OBSERVED WITH ENSURE,THICKENED LIQUIDS.
[2020-04-08 20:04] LABS: BILIRUBIN NEGATIVE (NEGATIVE); KETONE MODERATE mg/dL (NEGATIVE); NITRITE NEGATIVE (NEGATIVE); UROBILINOGEN NORMAL mg/dL (< 2)
[2020-04-08 20:56] VITALS: BP 133/86
--- NOTE | 2020-04-08 23:03 | NUR ---
RECEIVED PATIENT IN DAYROOM, HE IS CONFUSED, GARBLED SPEECH, COMBATIVE, TRYING TO KICK STAFF, UA OBTAINED WHICH HE WAS VERY COMBATIVE DURING PROCESS. WILL FOLLOW POC
--- NOTE | 2020-04-09 12:00 | NUR ---
RECEIVED IN HALLWAY OUTSIDE OF NURSES STATION. CALM AND COOPERATIVE WITH CARE AND ASSESSMENT. PATIENT IS MORE DROWSY TODAY. NO BEHAVIOR ISSUES. REDIRECT AND REORIENT NEEDED. REFUSING TO EAT. REDIRECT AND REORIENT NEEDED. CONTINUE PLAN OF CARE.
[2020-04-09 14:54] LABS: BASOPHILS 0.2 % (0-2); EOSINOPHILS 0.1 % (0-7); HEMATOCRIT 50.7 % (42.0-54.0); HEMOGLOBIN 16.9 g/dL (13.5-17.5); IMMATURE GRANULOCYTES 0.4 % (0-5); LYMPHOCYTES 8.8 % (15-50); MCH 32.5 pg (26.0-34.0); MCHC 33.3 g/dL (31.0-37.0); MCV 97.5 fL (80.0-100.0); MEAN PLATELET VOLUME 10.7 fL (7.4-10.4); MONOCYTES 9.1 % (2-11); NEUTROPHILS 81.4 % (40-80); PLATELET COUNT 218 10x3/uL (130-400); RDW 12.8 % (11.5-14.5); WBC 13.5 10x3/uL (4.8-10.8)
[2020-04-09 15:16] LABS: ALBUMIN 3.6 g/dL (3.4-5.0); ANION GAP 20.4 mmol/L (8-16); BILIRUBIN - TOTAL 1.9 mg/dL (0.2-1.3); CARBON DIOXIDE 24.6 mmol/L (21.0-32.0); CREATININE - SERUM 1.4 mg/dL (0.6-1.3)
--- NOTE | 2020-04-09 16:02 | NUR ---
DR. OREILLY NOTIFIED REGARDING LAB RESULTS. NEW ORDERS REC'D. ROCEPHIN 1GM IM DAILY X 7 DAYS. FLORANEX 1 TABLET DAILY X 14 DAYS. NEW ORDERS NOTED. WILL CPOC.
--- NOTE | 2020-04-09 16:48 | NUR ---
PT BROUGHT TO ROOM TO ASSESS. GURGLING NOTED. THIS NURSE SUCTIONED PT PER ORDER. THIS NURSE EXPLAINED THE PROCEDURE TO PT. NURSE EXPLAINED " I AM GOING TO ATTEMPT TO SUCTION YOUR AIRWAY TO REMOVE SECRETIONS NOTED. 250 MLS REMOVED AND NOTED IN CANISTER. PT STATED " THANK YOU MA" PT WAS NOT COMBATIVE OR AGGRESSIVE AT THIS TIME. PT TOLERATED SUCTION WELL. INITIAL DOSE OF ROCEPHIN 1GM IM GIVEN PER ORDER. PT TOLERATED WELL. WILL CPOC.
--- NOTE | 2020-04-09 16:48 | NUR ---
PT NOTED GARGLING. SUCTIONED PT PER ORDER. THIS NURSE EXPLAINED TO PT " I AM GOING TO SUCTION THE AIRWAY, TO TRY TO REMOVED SECRETIONS NOTED. 250MLS REMOVED AND NOTED IN CANISTER. PT STATED " THANK YOU" PT WAS NOT COMBATIVE OR AGGRESSIVE AT THIS TIME. PT TOLERATED SUCTION WELL. ROCEPHIN 1GM IM INITIAL DOSE GIVEN PER ORDER. PT TOLERATED WELL AT THIS TIME. WILL CPOC.
--- NOTE | 2020-04-09 19:51 | NUR ---
RECEIVED IN DAYROOM. SITTING IN A CHAIR WITH PEERS AT HIS SIDE. CALM AND COOPERATIVE WITH CARE AND ASSESSMENT. NO SIGNS OF AGGRESSION OR SEXUALLY INAPPROPRIATE BEHAVIORS. REDIRECT AND REORIENT NEEDED. CONTINUES TO SIT QUIETLY IN DAYROOM. CONTINUE PLAN OF CARE.
[2020-04-09 22:16] VITALS: BP 93/41
--- NOTE | 2020-04-10 00:16 | NUR ---
SUCTION PATIENT THROAT TO CLEAR MUCUS. PATIENT RESPONDED WELL TO SUCTIONING.
--- NOTE | 2020-04-10 06:38 | NUR ---
LABORED BREATHING. SUCTIONED THROAT REMOVING THICK MUCOUS. PATIENT APPEARS TO HAVE ANXIETY RELATED TO DIFFICULTY BREATHING. YAHIR GRIGGS CALLED. NEW ORDER FOR DUONEB UPDRAFT QID ORDERED. CONTINUE TO MONITOR.
[2020-04-10 08:00] VITALS: BP 146/90
[2020-04-10 08:35] VITALS: BP 140/90
--- NOTE | 2020-04-10 08:35 | NUR ---
PT IN DAYROOM WITH STAFF. DR. OREILLY PRESENT AT THIS TIME. THIS NURSE REPORTED RECTAL TEMP OF 102.[address] OREILLY. RT PRESENT PROVIDING BREATHING TREATMENT PER ORDER. DR. OREILLY WENT TO ASSESS PT AT THIS TIME. DR. OREILLY RETURNED TO NURSES STATION AND STATED " PT O2 SAT IS 89%." NEW ORDER FOR O2 TO MAINTAIN SAT AT 90% OR ABOVE AND PT TO BE TRANSFERRED TO ICU PER DR. OREILLY. ADMISSION ORDERS COMPLETED PER DR. OREILLY AT THIS TIME. HS NOTIFIED AND ORDERS FAXED. HS STATED " NO ICU OR MEDICAL BED AVAILABLE AT THIS TIME." PT TRANSFERRED TO PT'S ROOM AND BED PER STAFF X 4. RT PRESENT AT BEDSIDE. NRB AT 15 LPM PER [facility] RT. V/S B/P-140/90, R- 22, T- 102.1, P- 174. CARDIOLOGY SUSAN MARTIN APRN CONSULTED. DR. BUSTILLO CONSULTED. IV PLACED TO LEFT HAND PER VASCULAR NURSE MARIE RN. EKG COMPLETED. PT PLACED ON HEART MONITOR AT THIS TIME. ABG'S COLLECTED PER [facility] RT. DR. OREILLY NOTIFIED OF ABG RESULTS PER [facility] AT THIS TIME. RT AND DR. OREILLY PRESENT ON UNIT AT THIS TIME. PT'S O2 SAT IMPROVED PER RT. PT PLACED ON 02 AT 5L VIA N/C. PT IS MAINTAINING 02 SAT OF 94% AT THIS TIME. ROCEPHIN 1GM IM ADMINISTERED PER NOW ORDER. NS OF 500 MLS BOLUS HANGING VIA POLE PER NOW ORDER. BLOOD CULTURES X2 COLLECTED PER LAB. 16FR TREJO CATH PLACED PER ORDER. PT TOLERATED WELL AT THIS TIME. AWAITING ON LAB RESULTS AT THIS TIME. WILL CONTINUE TO MONITOR FOR ANY CHANGES. PT IS 1:1 ON S[facility]IOR LIVING UNIT AT THIS TIME. AWAITING ON ICU BED PER HS. MYNOR DIRECTOR PRESENT AT THIS TIME. THIS NURSE NOTIFIED MARIA ESTHER WITH [facility]PS AND PROVIDED UPDATE AND REC'D CONSENT TO TRANSFER PT TO ICU. WILL CPOC.
--- NOTE | 2020-04-10 08:52 | NUR ---
HEART MONITOR GIVEN TO CREDIT CORRESPONDENCE CLERK, HR 177
[2020-04-10 09:48] VITALS: BP 138/88
[2020-04-10 10:27] LABS: BILIRUBIN NEGATIVE (NEGATIVE); KETONE NEGATIVE (NEGATIVE); NITRITE POSITIVE (NEGATIVE); UROBILINOGEN 4 mg/dL (< 2)
[2020-04-10 10:31] LABS: EPITHELIAL CELLS 0-5 /hpf (0-5)
[2020-04-10 10:32] LABS: AMORPHOUS SEDIMENT MODERATE LPF (NONE SEEN); BACTERIA MODERATE HPF (NONE SEEN)
[2020-04-10 11:08] VITALS: BP 130/86
[2020-04-10 12:40] VITALS: BP 136/84
--- NOTE | 2020-04-10 12:55 | NUR ---
NEW ORDER TO INCREASE RATE OF NS TO 150MLS/HR. NEW ORDER NOTED AND CARRIED OUT AT THIS TIME. WILL CPOC.
--- NOTE | 2020-04-10 13:15 | NUR ---
THIS NURSE CONTACTED DR. OREILLY REGARDING PT'S ELEVATED HEART RATE MAINTAINING BETWEEN 175 AND 177. NEW ORDER FOR LOPRESSOR INJ 2.5 NOW. NEW ORDER NOTED AND ORDERED.
[2020-04-10 13:30] VITALS: BP 124/74
--- NOTE | 2020-04-10 13:43 | NUR ---
CALLED CODE SEPSIS AT THIS PER LACTIC ACID OF 7.5. DR. OREILLY NOTIFIED. [facility] TEAM PRESENT ON UNIT AT THIS TIME. REFLEX ORDERED FOR LACTIC ACID. PT TRANSFERRED TO ICU 2313 AT 1415 PER STAFF.
[2020-04-10] MEDS ORDERED: ROCEPHIN 1 GM/D51 G1 IM (14:10)
[2020-04-10] MEDS ORDERED: IPRAT-ALBUT 0.5-3 ML INH (14:11)
[2020-04-10] MEDS ORDERED: MERREM 1 GM/NS 11 G1 IV (14:11)
[2020-04-10] MEDS ORDERED: VANCOMYCIN 1 GM/1 G1 IV (14:11)
[2020-04-10] MEDS ORDERED: LINZESS145 MCG PO (14:12)
[2020-04-10] MEDS ORDERED: FLORANEX / LACT1 TAB PO (14:12)
[2020-04-10] MEDS ORDERED: Vitamin D PO (14:13)
[2020-04-10] MEDS ORDERED: Megace ES [CHEMO] PO (14:13)
[2020-04-10] MEDS ORDERED: Senokot TAB PO (14:13)
[2020-04-10] MEDS ORDERED: Xylocaine-MPF 1% IM (14:13)
== END 2020-04-10 14:15 | disposition short-term general hospital (02) | DRG 56 ==
LOC: D.ER 10:02 → D.PSYCH 15:15
PROVIDERS: Emergency Medicine; Family Medicine; ADMIT Psychiatry & Neurology Psychiatry; ATTEND Psychiatry & Neurology Psychiatry
DX: G30.1 Alzheimer's disease with late onset (principal); A41.9 Sepsis, unspecified organism; F02.81 Dementia in other diseases classified elsewhere, unspecified severity, with behavioral disturbance; E87.0 Hyperosmolality and hypernatremia; F43.10 Post-traumatic stress disorder, unspecified; F12.90 Cannabis use, unspecified, uncomplicated; N40.0 Benign prostatic hyperplasia without lower urinary tract symptoms; K59.00 Constipation, unspecified; F32.9 Major depressive disorder, single episode, unspecified; R63.0 Anorexia; R44.1 Visual hallucinations; Z68.24 Body mass index [BMI] 24.0-24.9, adult

== ENCOUNTER 2020-08-18 17:56 | Emergency (ER) | payer MEDICARE ==
[~2020-08-18] VITALS: Ht 180.3 cm; Wt 77.3 kg
[~2020-08-18 17:56] MED LIST changes: +ATROVENT 0.02%2.5 ML UPD; +CYMBALTA30 MG PO; +ERYTHROMYCIN250 M1 PO; +FLORANEX / LACT1 TAB PO; +HEPARIN SOD5000 U/ML SC; +IPRAT-ALBUT 0.5-3 ML INH; +LINZESS145 MCG PO; +MERREM 1 GM/NS 11 G1 IV; +MYSOLINE 50 MG50 MG PO; +Megace ES [CHEMO] PO; +PROTONIX IV IV; +PULMICORT0.5 MG/21 UPD; +REGLAN INJ10 MG/2 ML IV; +RISPERDAL1 MG PO; +ROCEPHIN 1 GM/D51 G1 IM; +SENNA LAXATIVE8.6 MG PO; +Senokot TAB PO; +VANCOMYCIN 1 GM/1 G1 IV; +VITAMIN D1000 UNI1 PO; +Vitamin D PO; +Xylocaine-MPF 1% IM
[2020-08-18 18:05] VITALS: Ht 180.3 cm; Wt 77.3 kg
[2020-08-18 18:42] LABS: BASOPHILS 0 % (0-2); EOSINOPHILS 0 % (0-7); HEMATOCRIT 23.6 % (42.0-54.0); IMMATURE GRANULOCYTES 1.2 % (0-5); LYMPHOCYTES 20.5 % (15-50); MCH 28.5 pg (26.0-34.0); MCHC 31.8 g/dL (31.0-37.0); MCV 89.7 fL (80.0-100.0); MEAN PLATELET VOLUME 7.7 fL (7.4-10.4); MONOCYTES 2.2 % (2-11); NEUTROPHIL ABS# 4.44 10x3/uL (1.78-5.38); NEUTROPHILS 76.1 % (40-80); PLATELET COUNT 334 10x3/uL (130-400); RBC 2.63 10x6/uL (4.20-6.10); RDW 15.8 % (11.5-14.5); WBC 5.8 10x3/uL (4.8-10.8)
[2020-08-18 18:43] LABS: HEMOGLOBIN 7.5 g/dL (13.5-17.5)
[2020-08-18 18:52] LABS: ANION GAP 12.1 mmol/L (8-16); CALCIUM 8.2 mg/dL (8.5-10.1); CREATININE - SERUM 1.3 mg/dL (0.6-1.3); POTASSIUM - SERUM 5.1 mmol/L (3.5-5.1)
[2020-08-18 18:55] LABS: BILIRUBIN NEGATIVE (NEGATIVE); KETONE NEGATIVE (NEGATIVE); NITRITE NEGATIVE (NEGATIVE); UROBILINOGEN NORMAL mg/dL (< 2)
[2020-08-18 19:02] LABS: ALBUMIN 1.8 g/dL (3.4-5.0); BILIRUBIN - TOTAL 0.31 mg/dL (0.2-1.3); PROTEIN - SERUM 7.3 g/dL (6.4-8.2)
[2020-08-18 22:11] VITALS: BP 116/71
== END 2020-08-18 22:12 | disposition home or self-care (01) ==
LOC: D.ER 17:56
PROVIDERS: Family Medicine
DX: D53.9 Nutritional anemia, unspecified (principal); J96.10 Chronic respiratory failure, unspecified whether with hypoxia or hypercapnia; L89.153 Pressure ulcer of sacral region, stage 3; G30.9 Alzheimer's disease, unspecified; F02.80 Dementia in other diseases classified elsewhere, unspecified severity, without behavioral disturbance, psychotic disturbance, mood disturbance, and anxiety

== ENCOUNTER 2020-08-21 14:59 | Inpatient (IN) | payer MEDICARE ==
[~2020-08-21] VITALS: Ht 180.3 cm; Wt 68.2 kg
[2020-08-21 15:03] VITALS: Ht 180.3 cm; Wt 68.2 kg
[2020-08-21 16:01] LABS: BASOPHILS 0.1 % (0-2); EOSINOPHILS 0 % (0-7); HEMATOCRIT 22.9 % (42.0-54.0); IMMATURE GRANULOCYTES 0.9 % (0-5); LYMPHOCYTE ABS# 1.38 10x3/uL (1.32-3.57); MCH 29.5 pg (26.0-34.0); MCHC 32.8 g/dL (31.0-37.0); MCV 90.2 fL (80.0-100.0); MEAN PLATELET VOLUME 7.8 fL (7.4-10.4); MONOCYTES 4.3 % (2-11); NEUTROPHIL ABS# 6.32 10x3/uL (1.78-5.38); NEUTROPHILS 77.7 % (40-80); PLATELET COUNT 333 10x3/uL (130-400); RBC 2.54 10x6/uL (4.20-6.10); RDW 16.2 % (11.5-14.5); WBC 8.1 10x3/uL (4.8-10.8)
[2020-08-21 16:07] LABS: HEMOGLOBIN 7.5 g/dL (13.5-17.5)
--- NOTE | 2020-08-21 16:07 | NUR ---
CRITICAL LAB: HCG 7.5 DANY BAUTISTA NOTIFIED
[2020-08-21 16:09] LABS: ANION GAP 12.7 mmol/L (8-16); CALCIUM 8.2 mg/dL (8.5-10.1); CARBON DIOXIDE 25.9 mmol/L (21.0-32.0); CREATININE - SERUM 1.2 mg/dL (0.6-1.3); POTASSIUM - SERUM 4.6 mmol/L (3.5-5.1)
[2020-08-21 16:14] LABS: INR 1.28 (0.85-1.17); PROTIME 14.8 SECONDS (11.6-15.0)
[2020-08-21 16:15] LABS: BILIRUBIN - TOTAL 0.35 mg/dL (0.2-1.3); PROTEIN - SERUM 7.2 g/dL (6.4-8.2)
--- NOTE | 2020-08-21 16:20 | NUR ---
WOUND ASSESSMENT AND CARE PERFORMED BY Mio FELDMAN RN. WOUND IS CLEAN, NO SLOUGH OR ESCHAR PRESENT. PACKED WITH SALINE MOISTENED KERLIX AND COVERED WITH BORDER DRESSING. REPORTED TO DANY BAUTISTA.
--- NOTE | 2020-08-21 16:40 | NUR ---
REPORT AND TRANSFER BACK CALLED TO DESTINY NURSE AT [facility]. [facility] CALLED FOR TRANSPORT BACK TO [facility].
[2020-08-21 18:20] VITALS: BP 115/61
== END 2020-08-21 18:08 | DRG 594 ==
LOC: D.ER 14:59 → D.EDHOLD 17:14 → D.MS 17:20 → D.EDHOLD 18:06
PROVIDERS: Family Medicine; ADMIT Emergency Medicine; ATTEND Emergency Medicine
DX: L89.154 Pressure ulcer of sacral region, stage 4 (principal); D53.9 Nutritional anemia, unspecified; G30.9 Alzheimer's disease, unspecified; F02.80 Dementia in other diseases classified elsewhere, unspecified severity, without behavioral disturbance, psychotic disturbance, mood disturbance, and anxiety; Z93.0 Tracheostomy status

== ENCOUNTER 2020-08-28 08:46 | Emergency (ER) | payer MEDICARE ==
[~2020-08-28] VITALS: Ht 180.3 cm; Wt 70.5 kg
[2020-08-28 08:47] VITALS: BP 113/60; Ht 180.3 cm; Wt 70.5 kg
[2020-08-28] MEDS ORDERED: BUSPAR10 MG (08:54)
[2020-08-28] MEDS ORDERED: DAKIN'S 0.25%480 ML (08:54)
[2020-08-28] MEDS ORDERED: PEPCID AC20 MG (08:59)
[2020-08-28] MEDS ORDERED: BOUDREAUXS BUTT60 GM (09:00)
== END 2020-08-28 12:25 | disposition other institution (70) ==
LOC: D.ER 08:46
DX: T85.9XXA Unspecified complication of internal prosthetic device, implant and graft, initial encounter (principal)

== ENCOUNTER → 2020-08-30 07:09 | Outpatient (CLI) | payer MEDICARE ==
[2020-08-28 08:47] VITALS: BMI 21.6
--- NOTE | ~2020-08-30 | HEMODYNAMI ---
PATIENT:ROLANDA CALLOWAY MEDICAL RECORD: [id number] : 41 LOCATION:[facility] ADMISSION DATE: 08/30/20 Generatedon::10 Patient name: ROLANDA CALLOWAY Patient #: [id number] SSN: : [id number] Date of study: 08/30/2020 Page: Of Hemodynamic Procedure Report Patient Data Patient Demographics Procedure consent was obtained First Name: ROLANDA Gender: Male Last Name: ELLI : 1945 Patient #: [id number] Age: 75 year(s) Race: Unknown Additional ID: [id number] Contact details [address]: [address] [place] [address] State: [place] City: [place] Zip code: [address] Admission Admission Data Admission Date: 08/30/2020 Admission Time: 7:09 Procedure Procedure Types Cath Procedure Peripheral Cath Diagnostic Procedure Miscellaneous Procedure Description Procedure Date Procedure Date: 08/30/2020 Procedure Start Time: 8:55 Procedure Staff Name Function Leonidas Cr MD Performing Physician Shaq Hameed RT Monitor [place] RN Nurse Procedure Data Cath Procedure Fluoroscopy Diagnostic fluoroscopy Total fluoroscopy Time: 0.3 time: 0.3 min min Diagnostic fluoroscopy Total fluoroscopy dose: 2 dose: 2 mGy mGy Hemodynamics Rest Pre Cath Intra NCS Post Cath Procedure Log Time Note 8:29:38 Shaq Hameed RT (R) (CV) sent for patient. Start room use. 8:29:51 Patient received from Other to IR Unconscious. Tansferred to table in Supine position. 8:29:55 Signed procedure consent form obtained from guardian. 8:29:57 Correct patient and procedure confirmed by team. 8:29:58 Full Disclosure recording started 8:29:59 8:30:00 Pre-op teaching completed and patient verbalized understanding. 8:30:09 Unable to provide pre-op teaching due to educational barrier. dementia 8:30:16 Use device set IR Diagnostic 8:30:17 Bag Decanter () opened to sterile field. 8:30:18 Sterile Angiographic Pack opened to sterile field. 8:30:19 Tegaderm 4 x 4 ([id number]) opened to sterile field. 8:45:48 Right Arm was prepped with chlora-prep and draped in sterile fashion. 8:45:51 Alarms reviewed by R. N. 8:45:51 Sharps counted by scrub and verified by R.N. 8:49:21 Physician arrived 8:49:22 --------ALL STOP TIME OUT------ 8:49:23 Final Timeout: patient, procedure, and site verified with staff and physician. All members of the team are in agreement. 8:49:32 Right Arm site verified by team. 8:49:37 Sedation plan: Local Anesthetic Medication:Lidocaine 8:54:58 Procedure started. 8:55:08 Local anesthetic to right arm with Lidocaine 1% by Leonidas Cr MD.INITIAL ACCESS ONLY 9:00:39 PowerPICC 5Fr double lumen catheter opened to sterile field. 9:00:40 SUTURE ETHILON 2-0 BLK MONO FS opened to sterile field. 9:00:40 SHIELD Sorbaview ([id number]) opened to sterile field. 9:01:32 Venous access obtained using ultrasound guidance. 9:01:37 PICC line was trimmed to 38 cmcm and advanced to the superior vena cava.Position verified under fluoroscopy. 9:07:30 Procedure ended.(Physican Out) 9:08:15 Fluoroscopy time 00.30 minutes. 9:08:23 Fluoroscopy dose: 2 mGy 9:08:23 Flurop Dose total: 2 9:09:05 PICC LINE SUTURED IN WITH 2.0 ETHILON 9:09:09 Report given to Other. 9:09:16 Patient transfered to Other with Stretcher. Device Usage Item Name Manufacture Quantity Catalog Hospital Part Current Minimal Lot# / Number Charge Number Stock Stock Serial# Code Bag Decanter Microtek 1 [id number] 5 (2002) Medical Inc. Sterile Cardinal 1 [id number] 5 Angiographic Health Pack Tegaderm 4 x 3M 1 [id number] 164464 [id number] 5 4 (1626W) PowerPICC Bard 1 [id number] [id number] 5 5Fr double lumen catheter SUTURE Ethicon 1 [id number] 089948 5 ETHILON 2-0 BLK MONO FS SHIELD Centurion 1 [id number] [id number] [id number] [id number] 5 Sorbaview ([id number]) Signature Audit [place] Stage Time Signature Unsigned Intra-Procedure 08/30/2020 Shaq 9:09:54 AM Zari RT (R) (CV) [facility] [address] [place] [address]
[~2020-08-30 07:09] MED LIST changes: +BOUDREAUXS BUTT60 GM; +BUSPAR10 MG; +DAKIN'S 0.25%480 ML; +PEPCID AC20 MG
== END | disposition home or self-care (01) ==
LOC: D.RAD 07:09
PROVIDERS: ATTEND Legal Medicine
DX: Z45.2 Encounter for adjustment and management of vascular access device (principal)

== ENCOUNTER → 2020-11-15 07:59 | Day surgery (SDC) | payer MEDICARE ==
[2020-08-28 08:47] VITALS: BMI 21.6
--- NOTE | ~2020-11-15 | HEMODYNAMI ---
PATIENT:ROLANDA CLALOWAY MEDICAL RECORD: [id number] : 41 [id number] ADMISSION DATE: 11/15/20 Generatedon::32 Patient name: ROLANDA CALLOWAY Patient #: [id number] SSN: : [id number] Date of study: 11/15/2020 Page: Of Hemodynamic Procedure Report Patient Data Patient Demographics Procedure consent was obtained First Name: ROLANDA Gender: Male Last Name: ELLI : 1945 Patient #: [id number] Age: 75 year(s) Race: Unknown Additional ID: [id number] Contact details [address]: [address] [place] [address] State: [place] City: [place] Zip code: [address] Admission Admission Data Admission Date: 11/15/2020 Admission Time: 7:59 Procedure Procedure Types Cath Procedure Peripheral Cath Diagnostic Procedure Miscellaneous Procedure Description Procedure Date Procedure Date: 11/15/2020 Procedure Start Time: 8:51 Procedure Staff Name Function Zac Mora MD Performing Physician Shaq Hameed RT Monitor Ambar Hastings RT Monitor Shaq Hameed RT Scrub Procedure Data Cath Procedure Fluoroscopy Diagnostic fluoroscopy Total fluoroscopy Time: 1.6 time: 1.6 min min Diagnostic fluoroscopy Total fluoroscopy dose: 4 dose: 4 mGy mGy Contrast Material Contrast Material Type Amount (ml) Isovue 300 15 Hemodynamics Rest Pre Cath Intra NCS Post Cath Procedure Log Time Note 8:16:49 Shaq Hameed RT (R) (CV) sent for patient. Start room use. 8:17:21 Patient received from Other to IR Alert and oriented. Tansferred to table in Supine position. 8:17:27 Correct patient and procedure confirmed by team. 8:17:30 Signed procedure consent form obtained from guardian. 8:17:32 8:17:33 Full Disclosure recording started 8:17:39 Use device set IR Diagnostic 8:17:42 Sterile Angiographic Pack opened to sterile field. 8:17:42 Tegaderm 4 x 4 ([id number]) opened to sterile field. 8:34:45 per chart pt has no allergies 8:34:55 Alarms reviewed by R. N. 8:34:56 Sharps counted by scrub and verified by R.N. 8:35:01 Right Arm was prepped with chlora-prep and draped in sterile fashion. 8:35:27 SUTURE ETHILON 2-0 BLK MONO FS opened to sterile field. 8:35:29 SHIELD Sorbaview ([id number]) opened to sterile field. 8:49:50 Physician arrived 8:49:51 --------ALL STOP TIME OUT------ 8:49:52 Final Timeout: patient, procedure, and site verified with staff and physician. All members of the team are in agreement. 8:51:19 Procedure started. 8:51:25 Local anesthetic to right arm with Lidocaine 1% by Zac Mora MD.INITIAL ACCESS ONLY 8:51:34 Venous access obtained using ultrasound guidance. 9:12:08 aborted right arm and prepped left arm for picc line 9:25:10 PICC line was trimmed to 38cm and advanced to the superior vena cava.Position verified under fluoroscopy. 9:26:51 Procedure ended.(Physican Out) 9:27:35 Fluoroscopy time 01.60 minutes. 9:28:11 Fluoroscopy dose: 4 mGy 9:28:11 Flurop Dose total: 4 9:29:56 Contrast amount:Isovue 300 15ml. 9:31:26 Procedure and supply charges have been captured, reviewed, submitted and are correct. 9:31:53 Patient transfered to Other with Stretcher. Device Usage Item Name Manufacture Quantity Catalog Hospital Part Current Minimal Lot# / Number Charge Number Stock Stock Serial# Code Sterile Cardinal 1 [id number] Angiographic Health Pack Tegaderm 4 x 3M 1 [id number] 5 4 (1626W) SUTURE Ethicon 1 [id number] 5 ETHILON 2-0 BLK MONO FS SHIELD [employer] 1 [id number] 5 Sorbaview ([id number]) Signature [place] Stage Time Signature Unsigned Intra-Procedure 11/15/2020 Ambar Hastings 9:32:07 AM RT(R) [facility] [address] [id number]
== END | disposition home or self-care (01) ==
LOC: D.RAD 07:59
PROVIDERS: ATTEND Legal Medicine
DX: Z45.2 Encounter for adjustment and management of vascular access device (principal)